=== PATIENT | male | born 1940 | race Caucasian/White ===

== ENCOUNTER → 2017-01-15 | Outpatient (CLI) | payer MEDICARE, OTHER ==
[2017-01-15 12:43] LABS: HEMATOCRIT 34.8 % (37.9-51.0); HEMOGLOBIN 11.5 g/dL (13.5-17.0); HGB HCT DIFFERENCE -0.3; MEAN CORPUSCULAR HEMOGLOBIN 28.2 pg (27.0-33.4); MEAN CORPUSCULAR VOLUME 85 fl (80-97); RED BLOOD COUNT 4.08 10^6/uL (4.35-5.55); RED CELL DISTRIBUTION WIDTH 14.9 % (11.5-14.0); WHITE BLOOD COUNT 5.9 10^3/uL (4.0-10.5)
[2017-01-15 13:05] LABS: ALANINE AMINOTRANSFERASE 37 U/L (21-72); ALBUMIN 3.7 g/dL (3.5-5.0); ALKALINE PHOSPHATASE 75 U/L (38-126); ANION GAP 13 (5-19); ASPARTATE AMINO TRANSFERASE 31 U/L (17-59); BILIRUBIN,TOTAL 0.3 mg/dL (0.2-1.3); BLOOD UREA NITROGEN 83 mg/dL (7-20); CARBON DIOXIDE 19 mmol/L (22-30); CHLORIDE 108 mmol/L (98-107); CREATININE RESULT 4.62 mg/dL (0.52-1.25); GLUCOSE 63 mg/dL (75-110); PHOSPHORUS 5.2 mg/dL (2.5-4.5); SODIUM 139.6 mmol/L (137-145); TOTAL PROTEIN 5.9 g/dL (6.3-8.2)
== END ==
LOC: OD 11:15
PROVIDERS: ATTEND Internal Medicine Nephrology
DX: I12.9 Hypertensive chronic kidney disease with stage 1 through stage 4 chronic kidney disease, or unspecified chronic kidney disease (principal); N18.4 Chronic kidney disease, stage 4 (severe); E11.9 Type 2 diabetes mellitus without complications; R80.9 Proteinuria, unspecified; E87.5 Hyperkalemia
CPT/HCPCS: 36415; 80053; 83970; 84100; 85027

== ENCOUNTER → 2017-03-20 | Outpatient (CLI) | payer MEDICARE, OTHER ==
[2017-03-20 09:33] LABS: HEMATOCRIT 36.3 % (37.9-51.0); HEMOGLOBIN 11.6 g/dL (13.5-17.0); HGB HCT DIFFERENCE -1.5; MEAN CORPUSCULAR HEMOGLOBIN 27.9 pg (27.0-33.4); MEAN CORPUSCULAR VOLUME 87 fl (80-97); RED BLOOD COUNT 4.17 10^6/uL (4.35-5.55); RED CELL DISTRIBUTION WIDTH 14.8 % (11.5-14.0); WHITE BLOOD COUNT 5.1 10^3/uL (4.0-10.5)
[2017-03-20 09:43] LABS: APPEARANCE,URINE CLEAR; BILIRUBIN,URINE NEGATIVE (NEGATIVE); GLUCOSE, URINE NEGATIVE (NEGATIVE); KETONES,URINE NEGATIVE (NEGATIVE); LEUKOCYTE ESTERASE,URINE NEGATIVE (NEGATIVE); NITRITE,URINE NEGATIVE (NEGATIVE); PROTEIN,URINE 100 mg/dL (NEGATIVE); URINE SPECIFIC GRAVITY 1.011; UROBILINOGEN,URINE NEGATIVE mg/dL (<2.0)
[2017-03-20 09:58] LABS: ANION GAP 12 (5-19); BLOOD UREA NITROGEN 68 mg/dL (7-20); CARBON DIOXIDE 21 mmol/L (22-30); CHLORIDE 109 mmol/L (98-107); CREATININE RESULT 4.81 mg/dL (0.52-1.25); GLUCOSE 76 mg/dL (75-110); PHOSPHORUS 6.1 mg/dL (2.5-4.5); POTASSIUM 5.3 mmol/L (3.6-5.0); SODIUM 141.8 mmol/L (137-145)
== END ==
LOC: OD 08:46
PROVIDERS: ATTEND Internal Medicine Nephrology
DX: I12.9 Hypertensive chronic kidney disease with stage 1 through stage 4 chronic kidney disease, or unspecified chronic kidney disease (principal); N18.4 Chronic kidney disease, stage 4 (severe); R80.9 Proteinuria, unspecified; E11.9 Type 2 diabetes mellitus without complications
CPT/HCPCS: 36415; 80048; 81001; 83970; 84100; 85027

== ENCOUNTER → 2017-06-19 | Outpatient (CLI) | payer MEDICARE, OTHER ==
[2017-06-19 11:06] LABS: HEMATOCRIT 36.3 % (37.9-51.0); HEMOGLOBIN 11.8 g/dL (13.5-17.0); HGB HCT DIFFERENCE -0.9; MEAN CORPUSCULAR HEMOGLOBIN 28.2 pg (27.0-33.4); MEAN CORPUSCULAR HGB CONC 32.6 g/dL (32.0-36.0); MEAN CORPUSCULAR VOLUME 87 fl (80-97); RED BLOOD COUNT 4.19 10^6/uL (4.35-5.55); RED CELL DISTRIBUTION WIDTH 15.2 % (11.5-14.0)
[2017-06-19 11:16] LABS: APPEARANCE,URINE CLEAR; BILIRUBIN,URINE NEGATIVE (NEGATIVE); GLUCOSE, URINE NEGATIVE (NEGATIVE); KETONES,URINE NEGATIVE (NEGATIVE); LEUKOCYTE ESTERASE,URINE NEGATIVE (NEGATIVE); NITRITE,URINE NEGATIVE (NEGATIVE); PROTEIN,URINE 100 mg/dL (NEGATIVE); UROBILINOGEN,URINE NEGATIVE mg/dL (<2.0)
[2017-06-19 11:30] LABS: ANION GAP 12 (5-19); BLOOD UREA NITROGEN 82 mg/dL (7-20); CARBON DIOXIDE 19 mmol/L (22-30); CHLORIDE 111 mmol/L (98-107); CREATININE RESULT 4.76 mg/dL (0.52-1.25); GLUCOSE 58 mg/dL (75-110); PHOSPHORUS 5.6 mg/dL (2.5-4.5); POTASSIUM 5.4 mmol/L (3.6-5.0); SODIUM 141.6 mmol/L (137-145)
[2017-06-19 11:43] LABS: URINE CREATININE 65.7 mg/dL (22-328)
== END ==
LOC: OD 09:50
PROVIDERS: ATTEND Internal Medicine Nephrology
DX: E11.22 Type 2 diabetes mellitus with diabetic chronic kidney disease (principal); I12.9 Hypertensive chronic kidney disease with stage 1 through stage 4 chronic kidney disease, or unspecified chronic kidney disease; N18.4 Chronic kidney disease, stage 4 (severe); R80.9 Proteinuria, unspecified; E87.5 Hyperkalemia
CPT/HCPCS: 36415; 80048; 81001; 82570; 83970; 84100; 84156; 85027

== ENCOUNTER → 2017-06-26 | Outpatient (CLI) | payer MEDICARE, OTHER | LOC: OD 14:23 | PROVIDERS: ATTEND Internal Medicine Nephrology | DX: E87.6 Hypokalemia (principal) | CPT/HCPCS: 36415; 84132 ==

== ENCOUNTER → 2017-07-03 | Outpatient (CLI) | payer MEDICARE, OTHER ==
[2017-07-03 12:05] LABS: ANION GAP 13 (5-19); BLOOD UREA NITROGEN 92 mg/dL (7-20); CALCIUM 9.6 mg/dL (8.4-10.2); CARBON DIOXIDE 19 mmol/L (22-30); CHLORIDE 110 mmol/L (98-107); CREATININE RESULT 4.97 mg/dL (0.52-1.25); GLUCOSE 73 mg/dL (75-110); POTASSIUM 4.7 mmol/L (3.6-5.0); SODIUM 141.5 mmol/L (137-145)
== END ==
LOC: OD 10:41
PROVIDERS: ATTEND Internal Medicine Nephrology
DX: E87.5 Hyperkalemia (principal)
CPT/HCPCS: 36415; 80048

== ENCOUNTER → 2017-07-20 | Outpatient (CLI) | payer MEDICARE, OTHER ==
[2017-07-20 12:14] LABS: HEMATOCRIT 32.2 % (37.9-51.0); HEMOGLOBIN 10.8 g/dL (13.5-17.0); HGB HCT DIFFERENCE 0.2; MEAN CORPUSCULAR HEMOGLOBIN 28.9 pg (27.0-33.4); MEAN CORPUSCULAR HGB CONC 33.6 g/dL (32.0-36.0); MEAN CORPUSCULAR VOLUME 86 fl (80-97); RED BLOOD COUNT 3.74 10^6/uL (4.35-5.55); RED CELL DISTRIBUTION WIDTH 14.5 % (11.5-14.0)
[2017-07-20 12:48] LABS: ANION GAP 10 (5-19); BLOOD UREA NITROGEN 93 mg/dL (7-20); CALCIUM 9.4 mg/dL (8.4-10.2); CARBON DIOXIDE 20 mmol/L (22-30); CHLORIDE 112 mmol/L (98-107); CREATININE RESULT 5.16 mg/dL (0.52-1.25); GLUCOSE 75 mg/dL (75-110); POTASSIUM 5.1 mmol/L (3.6-5.0); SODIUM 142.1 mmol/L (137-145)
== END ==
LOC: OD 11:17
PROVIDERS: ATTEND Internal Medicine Nephrology
DX: N18.4 Chronic kidney disease, stage 4 (severe) (principal); I12.9 Hypertensive chronic kidney disease with stage 1 through stage 4 chronic kidney disease, or unspecified chronic kidney disease; E11.9 Type 2 diabetes mellitus without complications; E87.6 Hypokalemia
CPT/HCPCS: 36415; 80048; 85027

== ENCOUNTER → 2017-09-24 | Outpatient (CLI) | payer MEDICARE, OTHER ==
[2017-09-24 11:59] LABS: HEMATOCRIT 33.2 % (37.9-51.0); HEMOGLOBIN 10.8 g/dL (13.5-17.0); HGB HCT DIFFERENCE -0.8; MEAN CORPUSCULAR HEMOGLOBIN 27.7 pg (27.0-33.4); MEAN CORPUSCULAR HGB CONC 32.6 g/dL (32.0-36.0); MEAN CORPUSCULAR VOLUME 85 fl (80-97); RED BLOOD COUNT 3.91 10^6/uL (4.35-5.55); RED CELL DISTRIBUTION WIDTH 15.3 % (11.5-14.0)
[2017-09-24 12:29] LABS: ANION GAP 14 (5-19); BLOOD UREA NITROGEN 71 mg/dL (7-20); CALCIUM 8.9 mg/dL (8.4-10.2); CARBON DIOXIDE 15 mmol/L (22-30); CHLORIDE 113 mmol/L (98-107); CREATININE RESULT 4.97 mg/dL (0.52-1.25); GLUCOSE 80 mg/dL (75-110); PHOSPHORUS 5.1 mg/dL (2.5-4.5); POTASSIUM 5.2 mmol/L (3.6-5.0); SODIUM 142.4 mmol/L (137-145)
== END ==
LOC: OD 09:51
PROVIDERS: ATTEND Internal Medicine Nephrology
DX: E11.9 Type 2 diabetes mellitus without complications (principal); R80.9 Proteinuria, unspecified; N18.4 Chronic kidney disease, stage 4 (severe); I12.9 Hypertensive chronic kidney disease with stage 1 through stage 4 chronic kidney disease, or unspecified chronic kidney disease
CPT/HCPCS: 36415; 80048; 83970; 84100; 85027

== ENCOUNTER → 2017-11-19 | Outpatient (CLI) | payer MEDICARE, OTHER ==
[2017-11-19 13:36] LABS: HEMATOCRIT 33.7 % (37.9-51.0); MEAN CORPUSCULAR HEMOGLOBIN 27.7 pg (27.0-33.4); MEAN CORPUSCULAR HGB CONC 32.6 g/dL (32.0-36.0); MEAN CORPUSCULAR VOLUME 85 fl (80-97); PLATELET COUNT 182 10^3/uL (150-450); RED BLOOD COUNT 3.97 10^6/uL (4.35-5.55); RED CELL DISTRIBUTION WIDTH 15.8 % (11.5-14.0)
[2017-11-19 13:55] LABS: ANION GAP 13 (5-19); BLOOD UREA NITROGEN 90 mg/dL (7-20); CALCIUM 9.4 mg/dL (8.4-10.2); CARBON DIOXIDE 16 mmol/L (22-30); CHLORIDE 112 mmol/L (98-107); GLUCOSE 84 mg/dL (75-110); PHOSPHORUS 5.3 mg/dL (2.5-4.5); POTASSIUM 5.4 mmol/L (3.6-5.0); SODIUM 141.1 mmol/L (137-145)
[2017-11-19 18:11] LABS: ABSOLUTE BASOPHILS # (AUTO) 0.1 10^3/uL (0.0-0.2); ABSOLUTE EOSINOPHILS # (AUTO) 0.1 10^3/uL (0.0-0.6); ABSOLUTE LYMPHOCYTES (AUTO) 1.5 10^3/uL (0.5-4.7); ABSOLUTE NEUT (AUTO) 5.7 10^3/uL (1.7-8.2); EOSINOPHILS % (AUTO) 1.6 % (0-6); HEMATOCRIT 34.1 % (37.9-51.0); LYMPHOCYTES % (AUTO) 17.8 % (13-45); MEAN CORPUSCULAR HEMOGLOBIN 27.9 pg (27.0-33.4); MEAN CORPUSCULAR HGB CONC 32.3 g/dL (32.0-36.0); MEAN CORPUSCULAR VOLUME 86 fl (80-97); PLATELET COUNT 178 10^3/uL (150-450); RED BLOOD COUNT 3.94 10^6/uL (4.35-5.55); RED CELL DISTRIBUTION WIDTH 15.5 % (11.5-14.0); SEGMENTED NEUTROPHILS % (AUTO) 67.6 % (42-78); TOTAL CELLS COUNTED % (AUTO) 100 %; WHITE BLOOD COUNT 8.4 10^3/uL (4.0-10.5)
[2017-11-19 18:27] LABS: ALANINE AMINOTRANSFERASE 44 U/L (21-72); ALBUMIN 3.8 g/dL (3.5-5.0); ALKALINE PHOSPHATASE 107 U/L (38-126); ASPARTATE AMINO TRANSFERASE 31 U/L (17-59); BILIRUBIN,DIRECT 0.3 mg/dL (0.0-0.4); BILIRUBIN,TOTAL 0.3 mg/dL (0.2-1.3); CHOLESTEROL 132.39 mg/dL (0-200); TOTAL PROTEIN 6.2 g/dL (6.3-8.2); TRIGLYCERIDES 129 mg/dL (<150); URIC ACID 5.6 mg/dL (3.5-8.5)
[2017-11-19 18:39] LABS: DIRECT LDL 48 mg/dL (<100)
[2017-11-19 18:48] LABS: ANION GAP 13 (5-19); BLOOD UREA NITROGEN 90 mg/dL (7-20); CALCIUM 9.4 mg/dL (8.4-10.2); CARBON DIOXIDE 16 mmol/L (22-30); CHLORIDE 112 mmol/L (98-107); GLUCOSE 84 mg/dL (75-110); POTASSIUM 5.4 mmol/L (3.6-5.0); SODIUM 141.1 mmol/L (137-145)
== END ==
LOC: OD 12:36
PROVIDERS: ATTEND Internal Medicine Nephrology
DX: I12.9 Hypertensive chronic kidney disease with stage 1 through stage 4 chronic kidney disease, or unspecified chronic kidney disease (principal); N18.4 Chronic kidney disease, stage 4 (severe); R80.9 Proteinuria, unspecified; E11.22 Type 2 diabetes mellitus with diabetic chronic kidney disease; E79.0 Hyperuricemia without signs of inflammatory arthritis and tophaceous disease; E78.2 Mixed hyperlipidemia; D63.8 Anemia in other chronic diseases classified elsewhere
CPT/HCPCS: 36415; 80048; 80053; 80061; 83036; 83970; 84100; 84550; 85025; 85027

== ENCOUNTER → 2018-01-14 | Outpatient (CLI) | payer MEDICARE, OTHER ==
[2018-01-14 10:18] LABS: HEMATOCRIT 32.9 % (37.9-51.0); HEMOGLOBIN 10.8 g/dL (13.5-17.0); MEAN CORPUSCULAR HEMOGLOBIN 27.8 pg (27.0-33.4); MEAN CORPUSCULAR HGB CONC 32.9 g/dL (32.0-36.0); MEAN CORPUSCULAR VOLUME 85 fl (80-97); PLATELET COUNT 183 10^3/uL (150-450); RED BLOOD COUNT 3.89 10^6/uL (4.35-5.55); RED CELL DISTRIBUTION WIDTH 14.9 % (11.5-14.0); WHITE BLOOD COUNT 5.3 10^3/uL (4.0-10.5)
[2018-01-14 10:55] LABS: ANION GAP 15 (5-19); BLOOD UREA NITROGEN 103 mg/dL (7-20); CALCIUM 9.6 mg/dL (8.4-10.2); CARBON DIOXIDE 16 mmol/L (22-30); CHLORIDE 110 mmol/L (98-107); GLUCOSE 85 mg/dL (75-110); PHOSPHORUS 6.8 mg/dL (2.5-4.5); POTASSIUM 5.2 mmol/L (3.6-5.0)
== END ==
LOC: OD 09:46
PROVIDERS: ATTEND Internal Medicine Nephrology
DX: I12.9 Hypertensive chronic kidney disease with stage 1 through stage 4 chronic kidney disease, or unspecified chronic kidney disease (principal); N18.4 Chronic kidney disease, stage 4 (severe); R80.9 Proteinuria, unspecified; E87.5 Hyperkalemia
CPT/HCPCS: 36415; 80048; 83970; 84100; 85027

== ENCOUNTER → 2018-01-21 | Outpatient (CLI) | payer MEDICARE, OTHER ==
[2018-01-21 16:20] LABS: HEMATOCRIT 34.5 % (37.9-51.0); HEMOGLOBIN 11.3 g/dL (13.5-17.0); MEAN CORPUSCULAR HEMOGLOBIN 27.8 pg (27.0-33.4); MEAN CORPUSCULAR HGB CONC 32.7 g/dL (32.0-36.0); MEAN CORPUSCULAR VOLUME 85 fl (80-97); PLATELET COUNT 169 10^3/uL (150-450); RED BLOOD COUNT 4.06 10^6/uL (4.35-5.55)
[2018-01-21 16:38] LABS: ANION GAP 11 (5-19); BLOOD UREA NITROGEN 75 mg/dL (7-20); CALCIUM 9.2 mg/dL (8.4-10.2); CARBON DIOXIDE 22 mmol/L (22-30); CHLORIDE 108 mmol/L (98-107); GLUCOSE 128 mg/dL (75-110); POTASSIUM 5.7 mmol/L (3.6-5.0); SODIUM 141.4 mmol/L (137-145)
[2018-01-23 07:43] LABS: HEPATITIS C VIRUS AB <0.1 s/co ratio (0.0-0.9); HEPATITS B SURFACE ANTIGEN Negative (Negative)
[2018-01-23 07:58] LABS: HEPATITIS B CORE AB TOT Negative (Negative)
== END ==
LOC: OD 14:49
PROVIDERS: ATTEND Internal Medicine Nephrology
DX: E11.22 Type 2 diabetes mellitus with diabetic chronic kidney disease (principal); N18.4 Chronic kidney disease, stage 4 (severe); R80.9 Proteinuria, unspecified; Z11.59 Encounter for screening for other viral diseases
CPT/HCPCS: 36415; 80048; 85027; 86704; 86803; 86804; 87340

== ENCOUNTER → 2018-06-21 | Outpatient (CLI) | payer MEDICARE, OTHER ==
--- NOTE | 2018-06-21 17:23 | RADIOLOGY REPORT (SQ) ---
EXAM DESCRIPTION: U/S RETROPERITON LTD COMPLETED DATE/TIME: 06/21/2018 8:09 am REASON FOR STUDY: I71.4 ABDOMINAL AORTIC ANEURYSM, WITHOUT RUPTURE I71.4 ABDOMINAL AORTIC ANEURYSM, WITHOUT RUPTURE COMPARISON: None. TECHNIQUE: Dynamic and static grayscale images acquired of the kidneys and bladder and recorded on P ACS. Additional selected color Doppler and spectral images recorded. LIMITATIONS: None. 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 The right kidney measure d 11 cm. A small cortical cysts was seen. Urinary bladder was unremarkable. Ureteral jet was not s een. IMPRESSION: Normal study as performed. TECHNICAL DOCUMENTATION: JOB ID: [id number] [employer]- All Rights Reserved Reading location - IP/workstation name: [email or web address]
== END ==
LOC: RAD 07:40
PROVIDERS: ATTEND Physician Assistant
DX: I71.4 Abdominal aortic aneurysm, without rupture (principal)
CPT/HCPCS: 76775

== ENCOUNTER → 2018-07-08 | Outpatient (CLI) | payer MEDICARE, OTHER ==
--- NOTE | 2018-07-08 19:30 | EKG REPORT ---
SEVERITY:- ABNORMAL ECG - SINUS RHYTHM LEFT BUNDLE BRANCH BLOCK : Confirmed by: Mark Guillermo MD 08-Jul-2018 19:29:26
== END ==
LOC: OD 14:46
PROVIDERS: ATTEND Orthopaedic Surgery
DX: I10 Essential (primary) hypertension (principal)
CPT/HCPCS: 93005; 93010

== ENCOUNTER → 2018-08-30 | Outpatient (CLI) | payer MEDICARE, OTHER ==
--- NOTE | 2018-08-30 09:13 | RADIOLOGY REPORT (SQ) ---
EXAM DESCRIPTION: U/S RETROPERITON LTD COMPLETED DATE/TIME: 08/30/2018 8:56 am REASON FOR STUDY: I71.4 ABDOMINAL AORTIC ANEURYSM, WITHOUT RUPTURE I71.4 ABDOMINAL AORTIC ANEURYSM, WITHOUT RUPTURE COMPARISON: None. TECHNIQUE: Static and dynamic grayscale images acquired of the aorta and stored on PACs. Selected co paula Doppler and spectral images recorded. LIMITATIONS: None. FINDINGS: AORTIC CALIBER MAXIMAL PROXIMAL: Obscured by bowel gas. MID: 2.1 cm. DISTAL: 2.6 cm. ILIAC DIAMETER RIGHT: 2.0 cm. LEFT: 2.0 cm. OTHER: No other significant finding. IMPRESSION: NO ABDOMINAL AORTIC ANEURYSM. COMMENT: Aortic aneurysm imaging followup: 2.6-2.9 cm Every 5 years* *Based upon the Society for Vascular Surgery Guidelines: J Vasc Surg. 2009 Oct;50(4 Suppl):S2-49 *For aortas of maximum diameter of 2.6-2.9 cm meeting the criteria for AAA (?1.5 x proximal normal se gment) TECHNICAL DOCUMENTATION: JOB ID: [id number] [employer]- All Rights Reserved Reading location - IP/workstation name: [email or web address]
== END ==
LOC: RAD 08:22
PROVIDERS: ATTEND Physician Assistant
DX: I71.4 Abdominal aortic aneurysm, without rupture (principal)
CPT/HCPCS: 76775

== ENCOUNTER 2018-08-31 15:59 | Emergency (ER) | payer MEDICARE, OTHER ==
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
[2018-08-31] MEDS ORDERED: LIDOCAINE 1% INJ-PF (10 MG/ML) 30 ML SDV INJ ONE (16:51)
[2018-08-31 16:58] LABS: ABSOLUTE EOSINOPHILS # (AUTO) 0.1 10^3/uL (0.0-0.6); ABSOLUTE LYMPHOCYTES (AUTO) 1.1 10^3/uL (0.5-4.7); ABSOLUTE NEUT (AUTO) 5.5 10^3/uL (1.7-8.2); BASOPHILS % (AUTO) 0.4 % (0-2); EOSINOPHILS % (AUTO) 0.7 % (0-6); HEMATOCRIT 37.1 % (37.9-51.0); HEMOGLOBIN 12.7 g/dL (13.5-17.0); LYMPHOCYTES % (AUTO) 13.9 % (13-45); MEAN CORPUSCULAR HEMOGLOBIN 29.5 pg (27.0-33.4); MEAN CORPUSCULAR HGB CONC 34.2 g/dL (32.0-36.0); MEAN CORPUSCULAR VOLUME 86 fl (80-97); MONOCYTES % (AUTO) 13.5 % (3-13); PLATELET COUNT 184 10^3/uL (150-450); RED BLOOD COUNT 4.31 10^6/uL (4.35-5.55); RED CELL DISTRIBUTION WIDTH 14.9 % (11.5-14.0); SEGMENTED NEUTROPHILS % (AUTO) 71.5 % (42-78); TOTAL CELLS COUNTED % (AUTO) 100 %; WHITE BLOOD COUNT 7.7 10^3/uL (4.0-10.5)
--- NOTE | 2018-08-31 17:00 | RADIOLOGY REPORT (SQ) ---
EXAM DESCRIPTION: CHEST SINGLE VIEW COMPLETED DATE/TIME: 08/31/2018 4:46 pm REASON FOR STUDY: left arm pain COMPARISON: 05/19/2016 EXAM PARAMETERS: NUMBER OF VIEWS: One view. TECHNIQUE: Single frontal radiographic view of the chest acquired. RADIATION DOSE: NA LIMITATIONS: None. FINDINGS: LUNGS AND PLEURA: No opacities, masses or pneumothorax. No pleural effusion. MEDIASTINUM AND HILAR STRUCTURES: The mediastinum appears widened. No focal mass is visualized. HEART AND VASCULAR STRUCTURES: Heart normal in size. Normal vasculature. BONES: No acute findings. HARDWARE: None in the chest. OTHER: No other significant finding. IMPRESSION: The appearance of a somewhat widened mediastinum may be due in part to AP technique. Co nsider dedicated PA/Lat chest imaging when feasible. TECHNICAL DOCUMENTATION: JOB ID: [id number] [employer]- All Rights Reserved Reading location - IP/workstation name: [email or web address]
[2018-08-31 17:09] LABS: INTERNATIONAL RATION (INR) 0.96; PROTHROMBIN TIME 13.3 SEC (11.4-15.4)
[2018-08-31 17:16] LABS: ALANINE AMINOTRANSFERASE 31 U/L (21-72); ALBUMIN 3.8 g/dL (3.5-5.0); ALKALINE PHOSPHATASE 145 U/L (38-126); ANION GAP 11 (5-19); ASPARTATE AMINO TRANSFERASE 37 U/L (17-59); BILIRUBIN,DIRECT 0.2 mg/dL (0.0-0.4); BILIRUBIN,TOTAL 0.6 mg/dL (0.2-1.3); BLOOD UREA NITROGEN 40 mg/dL (7-20); CALCIUM 9.2 mg/dL (8.4-10.2); CARBON DIOXIDE 28 mmol/L (22-30); CHLORIDE 96 mmol/L (98-107); CREATINE KINASE 125 U/L (55-170); GLUCOSE 99 mg/dL (75-110); POTASSIUM 4.3 mmol/L (3.6-5.0); SODIUM 135.4 mmol/L (137-145); TOTAL PROTEIN 6.7 g/dL (6.3-8.2)
[2018-08-31 17:32] LABS: TROPONIN I 0.182 ng/mL
[2018-08-31 18:22] LABS: APPEARANCE,URINE CLEAR; BILIRUBIN,URINE NEGATIVE (NEGATIVE); COLOR,URINE STRAW; GLUCOSE, URINE 50 mg/dL (NEGATIVE); KETONES,URINE NEGATIVE (NEGATIVE); LEUKOCYTE ESTERASE,URINE NEGATIVE (NEGATIVE); NITRITE,URINE NEGATIVE (NEGATIVE); PROTEIN,URINE >=500 mg/dL (NEGATIVE); URINE SPECIFIC GRAVITY 1.007; UROBILINOGEN,URINE NEGATIVE mg/dL (<2.0)
[2018-08-31] MEDS ORDERED: SULFAMETHOXAZOLE/TRIMETHOPRIM 800-160 MG TABLET PO ONE (18:33)
[2018-08-31] MEDS ORDERED: CEPHALEXIN 500 MG CAPSULE PO ONE (18:33)
[2018-08-31] MEDS ORDERED: FENTANYL CITRATE INJ/PF 100 MCG/2 ML AMPUL IV ONE (18:36)
--- NOTE | 2018-08-31 19:47 | RADIOLOGY REPORT (SQ) ---
EXAM DESCRIPTION: CHEST 2 VIEWS COMPLETED DATE/TIME: 08/31/2018 7:36 pm REASON FOR STUDY: repeat CXR COMPARISON: 08/31/2018 NUMBER OF VIEWS: One view. TECHNIQUE: Single frontal radiographic view of the chest acquired. LIMITATIONS: None. FINDINGS: LUNGS AND PLEURA: No opacities, masses or pneumothorax. No pleural effusion. MEDIASTINUM AND HILAR STRUCTURES: The mediastinum appears widened. HEART AND VASCULAR STRUCTURES: Heart normal in size. Normal vasculature. BONES: No acute findings. HARDWARE: None in the chest. OTHER: No other significant finding. IMPRESSION: Stable radiographic appearance of the chest demonstrating a widened mediastinum, which m ay be due in part to AP technique. Differential considerations include ascending aortic aneurysm or mediastinal mass. TECHNICAL DOCUMENTATION: JOB ID: [id number]- All Rights Reserved Reading location - IP/workstation name: [email or web address]
--- NOTE | 2018-08-31 21:45 | EKG REPORT ---
SEVERITY:- ABNORMAL ECG - SINUS RHYTHM LEFT BUNDLE BRANCH BLOCK : Confirmed by: Mark Guillermo MD 31-Aug-2018 21:45:26
--- NOTE | 2018-08-31 21:45 | EKG REPORT ---
SEVERITY:- ABNORMAL ECG - SINUS RHYTHM ATRIAL PREMATURE COMPLEX LEFT BUNDLE BRANCH BLOCK : Confirmed by: Mark Guillermo MD 31-Aug-2018 21:45:34
--- NOTE | 2018-08-31 21:46 | EKG REPORT ---
SEVERITY:- ABNORMAL ECG - SINUS RHYTHM ATRIAL PREMATURE COMPLEX FIRST DEGREE AV BLOCK LEFT BUNDLE BRANCH BLOCK : Confirmed by: Mark Guillermo MD 31-Aug-2018 21:45:11
[2018-09-01] MEDS ORDERED: FENTANYL CITRATE INJ/PF 100 MCG/2 ML AMPUL IV ONE (01:17)
[2018-09-01 03:17] VITALS: BP 141/70
== END 2018-09-01 02:30 | disposition short-term general hospital (02) ==
LOC: ER 15:59
PROC: 0H9CXZZ Drainage of Left Upper Arm Skin, External Approach (ICD-10-PCS; principal; 2018-08-31)
DX: R79.89 Other specified abnormal findings of blood chemistry (principal); I12.0 Hypertensive chronic kidney disease with stage 5 chronic kidney disease or end stage renal disease; L02.412 Cutaneous abscess of left axilla; M25.512 Pain in left shoulder; N18.6 End stage renal disease; M10.9 Gout, unspecified; Z99.2 Dependence on renal dialysis; Z88.6 Allergy status to analgesic agent
CPT/HCPCS: 93005; 96376; 99285; 96374; 36415; 87070; 87205; 82553; 82550; 85025; 85610; 87077; 80053; 81001; 84484; 87186; 71046; 71045; 93010; 10060; A6266; L3908; A9270 ×2; J3010 ×2; J3490

== ENCOUNTER 2018-09-05 14:50 | Emergency (ER) | payer MEDICARE, OTHER ==
--- NOTE | 2018-09-05 15:55 | ER Document Report ---
ED Medical Screen (RME) - General Chief Complaint: Irregular Pulse Stated Complaint: IRREGULAR HEART RATE Time Seen by Provider: 09/05/18 15:46 TRAVEL OUTSIDE OF THE [place]. IN LAST 30 DAYS: No - HPI Patient complains to provider of: New-onset A. fib Notes: 09/05/18 15:54 Patient recently seen diagnosed with a end STEMI sent to [facility] had a stress test performed also has a s abscess abscess that was drained and patient follow-up with PCP after his dialysis today for follow-up visit EKG showed new onset A. fib patient otherwise asymptomatic - Related Data Allergies/Adverse Reactions: morphine Allergy (Severe, Verified 05/18/16 11:05) Hallucinations Past Medical History - Past Medical History Cardiac Medical History: Reports: Hx Hypertension Denies: Hx Coronary Artery Disease, Hx Heart Attack Pulmonary Medical History: Denies: Hx Asthma, Hx Bronchitis, Hx COPD, Hx Pneumonia Neurological Medical History: Denies: Hx Cerebrovascular Accident, Hx Seizures Renal/ Medical History: Denies: Hx Peritoneal Dialysis Musculoskeltal Medical History: Reports Hx Arthritis - generalized - Immunizations Hx Diphtheria, Pertussis, Tetanus Vaccination: Yes - 2014 Review of Systems - Review of Systems Respiratory: Other - New onset A. fib Physical Exam - Vital signs Vitals: Temp Pulse Resp BP Pulse Ox 97.8 F 92 16 122/70 96 09/05/18 15:05 09/05/18 15:05 09/05/18 15:05 09/05/18 15:05 09/05/18 15:05 - Respiratory Respiratory status: No respiratory distress Chest status: Nontender Breath sounds: Normal Chest palpation: Normal - Cardiovascular Rhythm: Irregularly irregular, Tachycardia Course - Vital Signs Vital signs: Temp Pulse Resp BP Pulse Ox 97.8 F 92 16 122/70 96 09/05/18 15:05 09/05/18 15:05 09/05/18 15:05 09/05/18 15:05 09/05/18 15:05 Doctor's Discharge - Discharge Referrals: SARAHY DICKEY MD [Primary Care Provider] - Follow up as needed
[2018-09-05 16:38] LABS: ABSOLUTE EOSINOPHILS # (AUTO) 0.1 10^3/uL (0.0-0.6); ABSOLUTE LYMPHOCYTES (AUTO) 1.6 10^3/uL (0.5-4.7); ABSOLUTE MONOCYTES (AUTO) 0.7 10^3/uL (0.1-1.4); ABSOLUTE NEUT (AUTO) 2.4 10^3/uL (1.7-8.2); BASOPHILS % (AUTO) 0.5 % (0-2); EOSINOPHILS % (AUTO) 2.8 % (0-6); HEMATOCRIT 38.8 % (37.9-51.0); HEMOGLOBIN 13.3 g/dL (13.5-17.0); LYMPHOCYTES % (AUTO) 32.4 % (13-45); MEAN CORPUSCULAR HEMOGLOBIN 29.6 pg (27.0-33.4); MEAN CORPUSCULAR HGB CONC 34.3 g/dL (32.0-36.0); MEAN CORPUSCULAR VOLUME 86 fl (80-97); MONOCYTES % (AUTO) 14.4 % (3-13); PLATELET COUNT 251 10^3/uL (150-450); RED BLOOD COUNT 4.51 10^6/uL (4.35-5.55); RED CELL DISTRIBUTION WIDTH 14.7 % (11.5-14.0); SEGMENTED NEUTROPHILS % (AUTO) 49.9 % (42-78); TOTAL CELLS COUNTED % (AUTO) 100 %; WHITE BLOOD COUNT 4.8 10^3/uL (4.0-10.5)
[2018-09-05 16:44] LABS: INTERNATIONAL RATION (INR) 0.94
--- NOTE | 2018-09-05 16:47 | RADIOLOGY REPORT (SQ) ---
EXAM DESCRIPTION: CHEST SINGLE VIEW COMPLETED DATE/TIME: 09/05/2018 4:38 pm REASON FOR STUDY: new onset aifb COMPARISON: AP chest 08/31/2018, 05/19/2016 EXAM PARAMETERS: NUMBER OF VIEWS: One view. TECHNIQUE: Single frontal radiographic view of the chest acquired. RADIATION DOSE: NA LIMITATIONS: None. FINDINGS: LUNGS AND PLEURA: Minimal scarring right lateral costophrenic sulcus. No acute infiltrates. No pleural effusion or pneumothorax. MEDIASTINUM AND HILAR STRUCTURES: No masses. Contour normal. HEART AND VASCULAR STRUCTURES: Heart normal in size. Normal vasculature. BONES: No acute findings. HARDWARE: None in the chest. OTHER: No other significant finding. IMPRESSION: NO ACUTE RADIOGRAPHIC FINDING IN THE CHEST. TECHNICAL DOCUMENTATION: JOB ID: [id number] [employer]- All Rights Reserved Reading location - IP/workstation name: [email or web address]
[2018-09-05 16:59] LABS: ALANINE AMINOTRANSFERASE 29 U/L (21-72); ALBUMIN 3.9 g/dL (3.5-5.0); ALKALINE PHOSPHATASE 151 U/L (38-126); ANION GAP 11 (5-19); ASPARTATE AMINO TRANSFERASE 37 U/L (17-59); BILIRUBIN,DIRECT 0.4 mg/dL (0.0-0.4); BILIRUBIN,TOTAL 0.5 mg/dL (0.2-1.3); BLOOD UREA NITROGEN 32 mg/dL (7-20); CALCIUM 8.6 mg/dL (8.4-10.2); CARBON DIOXIDE 32 mmol/L (22-30); CHLORIDE 97 mmol/L (98-107); CREATINE KINASE 142 U/L (55-170); GLUCOSE 99 mg/dL (75-110); LIPASE 167.5 U/L (23-300); POTASSIUM 4.4 mmol/L (3.6-5.0); SODIUM 140.4 mmol/L (137-145); TOTAL PROTEIN 6.8 g/dL (6.3-8.2)
[2018-09-05 17:12] LABS: CREATINE KINASE MB 2.46 ng/mL (<4.55)
[2018-09-05 17:18] LABS: TROPONIN I 0.062 ng/mL
--- NOTE | 2018-09-05 17:32 | ER Document Report ---
ED Cardiac - General Chief Complaint: Irregular Pulse Stated Complaint: IRREGULAR HEART RATE Time Seen by Provider: 09/05/18 15:46 Notes: Patient is here because he was found to be in atrial fibrillation when seen at his doctor's office today. He does not have a history of this condition and he has no symptoms. Patient was seen here in this emergency department on August 31, 5 days ago, for left hand pain. He had a slightly elevated troponin with a normal EKG showing a sinus rhythm. He was transferred to [facility] where they did various studies and tests on him, but did not do a cardiac cath. He was discharged home on September 03, 2 days ago. He says that he wore a monitor during his entire stay at [facility] and no one mentioned to him that he had an irregular heartbeat. He went to his primary care doctor's office today for a discharge follow-up and was discovered to be in atrial fibrillation. Patient denies any difficulty breathing or shortness of breath. He is not on any blood thinners. Patient is a renal dialysis patient, receives dialysis Sunday, , and Sunday and had dialysis this morning. Patient still makes some urine and urinates several times a day. Current medications include atenolol 25 mg, 1/2 tablet daily, amlodipine 10 mg daily, U [place], Lasix 20 mg once a week, statin, fenofibrate. TRAVEL OUTSIDE OF THE [place]. IN LAST 30 DAYS: No - Related Data Allergies/Adverse Reactions: morphine Allergy (Severe, Verified 05/18/16 11:05) Hallucinations Past Medical History - Social History Smoking Status: Never Smoker Frequency of alcohol use: None Drug Abuse: None Family History: Reviewed & Not Pertinent Patient has suicidal ideation: No Patient has homicidal ideation: No - Past Medical History Cardiac Medical History: Reports: Hx Hypercholesterolemia, Hx Hypertension Neurological Medical History: Denies: Hx Cerebrovascular Accident Endocrine Medical History: Reports: Hx Diabetes Mellitus Type 2 - diet controlled Renal/ Medical History: Reports: Hx End Stage Renal Disease Musculoskeletal Medical History: Reports Hx Arthritis - generalized Past Surgical History: Reports: Hx Kidney (Renal Surgery) - L nephrectomy 2002, Hx Orthopedic Surgery - b/l knees - Immunizations Hx Diphtheria, Pertussis, Tetanus Vaccination: Yes - 2014 Hx Pneumococcal Vaccination: 11/12/14 Review of Systems - Review of Systems Notes: REVIEW OF SYSTEMS: CONSTITUTIONAL : Denies fever. EENT: Denies eye, ear, nose or mouth or throat pain or other symptoms. CARDIOVASCULAR: Denies chest pain. RESPIRATORY: Denies cough, chest congestion, or shortness of breath. GASTROINTESTINAL: Denies abdominal pain or nausea, vomiting, or diarrhea. GENITOURINARY: Denies difficulty or painful urinating, urinary frequency, blood in urine. MUSCULOSKELETAL: Denies back or neck pain. Denies joint pain or swelling. See HPI. SKIN: Denies rash or skin lesions. NEUROLOGICAL: Denies LOC or altered mental status. Denies headache. Denies sensory loss or motor deficits. ALL OTHER SYSTEMS REVIEWED AND NEGATIVE. Physical Exam - Vital signs Vitals: Temp Pulse Resp BP Pulse Ox 97.8 F 92 16 122/70 96 09/05/18 15:05 09/05/18 15:05 09/05/18 15:05 09/05/18 15:05 09/05/18 15:05 Interpretation: Normal - Notes Notes: PHYSICAL EXAMINATION: GENERAL: Well-appearing, in no acute distress. HEAD: Atraumatic, normocephalic. EYES: Pupils equal round and reactive to light, extraocular movements intact. ENT: oropharynx clear without exudates. Moist mucous membranes. NECK: Normal range of motion, supple. LUNGS: Breath sounds clear and equal bilaterally. HEART: Irregularly irregular rate and rhythm without murmurs. ABDOMEN: Soft, nontender. No guarding or rebound. No masses. BACK: No tenderness throughout entire back. EXTREMITIES: Normal range of motion without pain. No edema present. Negative Homans bilaterally. NEUROLOGICAL: Normal speech, normal gait. Normal sensory, motor, and reflex exams. Awake, alert, and oriented x3. Cranial nerves normal. PSYCH: Normal mood, normal affect. SKIN: Warm, dry, no rashes. Course - Re-evaluation Re-evalutation: 09/05/18 17:54 Discussed this case with patient's outside repairer special, Dr. Toledo, and then also discussed this case with Dr. Mariee, direct chill casting operator on-call, who came to the emergency department to evaluate the patient and consult. Plan is to discharge patient for him to start taking Eliquis 2.5 mg twice a day. Follow-up with Dr. Mariee and primary care physician. - Vital Signs Vital signs: Temp Pulse Resp BP Pulse Ox 97.8 F 92 16 122/70 96 09/05/18 15:05 09/05/18 15:05 09/05/18 15:05 09/05/18 15:05 09/05/18 15:05 - Laboratory Result Diagrams: 09/05/18 16:23 09/05/18 16:23 Laboratory results interpreted by me: 09/05/18 09/05/18 16:23 16:23 Hgb 13.3 L RDW 14.7 H Monocytes % 14.4 H Chloride 97 L Carbon Dioxide 32 H BUN 32 H Creatinine 3.07 H Est GFR ( Amer) 24 L Est GFR (Non-Af Amer) 20 L Alkaline Phosphatase 151 H - EKG Interpretation by Me Rate: Normal Rhythm: A.Fib Milroy/QRS: LBBB Additional EKG results interpreted by me: 09/05/18 17:53 Today's EKG shows atrial fibrillation with a rate of 85/min. He has a left bundle branch block as well. Patient's EKG on August 31, 2018, just 5 days ago was a normal sinus rhythm with a first-degree AV block and a left bundle branch block. Discharge - Discharge Clinical Impression: Atrial fibrillation, ESRD (end stage renal disease) Condition: Stable Disposition: HOME, SELF-CARE Additional Instructions: Atrial Fibrillation Atrial fibrillation is an abnormal heart rhythm, caused by irregular electrical circuits in the upper heart chamber. It can be caused by heart valve disease, hardening of the arteries, or metabolic problems such as thyroid disease, or may occur without a clear cause. Atrial fibrillation may occur only occasionally, or may be chronic. Atrial fibrillation often results in a very fast heart rate, with palpitations, lightheadedness, and shortness of breath. Treatment is to slow the abnormally fast rate, and to convert the rhythm back to normal, if possible. Many patients stay in atrial fibrillation for years without symptoms or complications. Your doctor will decide whether you can be converted back to a normal heart rhythm. Contact the doctor or emergency medical system at once if you develop chest pain, shortness of breath, or severe lightheadedness, or if you develop any disturbance of consciousness, problems with speech, or localized weakness. FOLLOW-UP CARE: If you have been referred to a physician for follow-up care, call the physician s office for an appointment as you were instructed or within the next two days. If you experience worsening or a significant change in your symptoms, notify the physician immediately or return to the Emergency Department at any time for re-evaluation. I am providing you with enough Eliquis medication for you to take for 2 weeks. After that, please make arrangements with your primary care physician to get further medication. Continue to take all of your current medications as prescribed. Prescriptions: Apixaban [Eliquis 2.5 mg Tablet] 2.5 mg PO BID #30 tablet Referrals: SARAHY DICKEY MD [Primary Care Provider] - Follow up as needed
[2018-09-05] MEDS ORDERED: APIXABAN 2.5 MG TABLET PO ONE (17:59)
--- NOTE | 2018-09-05 18:31 | PDOC CONSULTATION ---
Consultation Consult Date: 09/05/18 Attending physician:: LAYTON BINGHAM Consult reason:: Atrial fibrillation History of Present Illness Admission Date/PCP: SARAHY DICKEY MD Patient complains of: Fatigue History of Present Illness: KATHARINA SANCHEZ is a 78 year old male is here because he was found to be in atrial fibrillation when seen at his doctor's office today. He does not have a history of this condition and he has no symptoms. Patient was seen here in this emergency department on August 31, 5 days ago, for left hand pain. He had a slightly elevated troponin with a normal EKG showing a sinus rhythm. He was transferred to [facility] where they did various studies and tests on him, but did not do a cardiac cath. He was discharged home on September 03, 2 days ago. He says that he wore a monitor during his entire stay at [facility] and no one mentioned to him that he had an irregular heartbeat. He went to his primary care doctor's office today for a discharge follow-up and was discovered to be in atrial fibrillation. Patient denies any difficulty breathing or shortness of breath. He is not on any blood thinners. Patient is a renal dialysis patient, receives dialysis Sunday, , and Sunday and had dialysis this morning. Patient still makes some urine and urinates several times a day. Current medications include atenolol 25 mg, 1/2 tablet daily, amlodipine 10 mg daily, U [place], Lasix 20 mg once a week, statin, fenofibrate. This history was reviewed with the patient and his . They confirm this. On repeated questioning patient denied any prior history of strokes, mini strokes TIA. He denied any history of excessive bleeding problems but does bruise easily. Patient has history of chronic kidney disease and currently on dialysis therapy. Past Medical History Cardiac Medical History: Reports: Hyperlipidema, Hypertension Denies: Coronary Artery Disease, Myocardial Infarction Pulmonary Medical History: Denies: Asthma, Bronchitis, Chronic Obstructive Pulmonary Disease (COPD), Pneumonia Neurological Medical History: Denies: Seizures Endocrine Medical History: Reports: Diabetes Mellitus Type 2 - diet controlled Renal/ Medical History: Reports: End Stage Renal Disease Musculoskeltal Medical History: Reports: Arthritis - generalized Hematology: Denies: Anemia Past Surgical History Past Surgical History: Reports: Orthopedic Surgery - b/l knees, Other - Dialysis access related surgeries. Social History Information Source: Patient Smoking Status: Never Smoker - Advance Directive Resuscitation Status: Full Code Surrogate healthcare decision maker:: Patient's is the surrogate decision-maker Family History Family History: Hypertension Parental Family History Reviewed: Yes Children Family History Reviewed: Yes Sibling(s) Family History Reviewed.: Yes Medication/Allergy Home Medications: Aspirin [Aspirin 81 mg Chewable Tablet] 1 tab PO DAILY 05/18/16 Atenolol [Tenormin] 0.5 tab PO DAILY 05/18/16 Calcitriol 1 tab PO ASDIR 05/18/16 Febuxostat [Uloric 40 mg Tablet] 1 tab PO QPM 05/18/16 Fenofibric Acid (Choline) [Trilipix] 1 cap PO QHS 05/18/16 Hydralazine HCl 1 tab PO BID 05/18/16 Insulin Glargine,Hum.rec.anlog [Lantus] 20 units SQ QHS 05/18/16 Rosuvastatin Calcium [Crestor 5 mg Tablet] 1 tab PO QHS 05/18/16 Tramadol HCl/Acetaminophen [Tramadol-Acetaminophn 37.5-325] 1 tab PO TID Oxycodone HCl/Acetaminophen [Percocet 5-325 mg Tablet] 1 tab PO ASDIR PRN #15 tablet 05/23/16 Apixaban [Eliquis 2.5 mg Tablet] 2.5 mg PO BID #30 tablet 09/05/18 Allergies/Adverse Reactions: morphine Allergy (Severe, Verified 05/18/16 11:05) Hallucinations Review of Systems Review of Systems: Please see history of present illness and past medical history as wall. Constitutional: No fever or chills reported. Head : No recent chronic headaches, recent head injury. Eyes: No recent eye pain, diplopia, redness, discharge, acute visual changes. Ears: No recent chronic ear pain, acute hearing loss, ear discharge. Oral cavity: No recent ulcerations, bleeding, oral cavity discomfort. Neck: No recent acute neck pain reported. Hematologic: No recent easy bruising or bleeding. Does describe easy bruising. Lymphatic: No recent lymph node enlargement reported. Cardiovascular system review: See history of present illness. Respiratory system review: No hemoptysis or blood clots in the lungs reported. Mild Shortness of breath on exertion Gastrointestinal system review: Negative for any recent acute hematemesis, melena. Genitourinary system review: No recent acute or chronic hematuria, flank pain, UTI etc. reported. Skin system review: Negative for any recent abnormal bruising, no rash, no pruritus reported. Neurologic: No prior history of strokes, mini strokes, seizure disorder. Psychologic: No history of major psychosis or major depression reported. Musculoskeletal: Minor aches and pains reported. No acute joint swelling reported. Endocrine: No recent polyuria, polydipsia, recent heat or cold intolerance. Physical Exam Vital Signs: Temp Pulse Resp BP Pulse Ox 97.8 F 92 16 122/70 96 09/05/18 15:05 09/05/18 15:05 09/05/18 15:05 09/05/18 15:05 09/05/18 15:05 Intake & Output 09/04/18 09/05/18 09/06/18 06:59 06:59 06:59 Weight 94.9 kg Exam: GENERAL: well-nourished and in no acute distress. Alert and oriented x3 HEAD: Atraumatic, normocephalic. EYES: Pupils equal round and reactive to light, extraocular movements intact, sclera anicteric, conjunctiva are normal. ENT: TMs normal, nares patent, oropharynx clear without exudates. Moist mucous membranes. No oral ulcerations or bleeding gums noted NECK: supple without lymphadenopathy. Trachea is central. No cervical or axillary lymphadenopathy noted. Carotids are 2+, JVD WNL LUNGS: Respiration seems nonlabored, no significant accessory muscle action noted. Breath sounds clear to auscultation bilaterally and equal noted. No wheezes rales or rhonchi noted. No significant dullness noted on percussion. CHEST: Palpation of the chest wall shows no significant chest wall tenderness. HEART: [place] [employer], No PSH, 1/6 FRANCISCO aortic area, 1/6 casanova systolic murmur mitral area, no rubs, no gallops. ABDOMEN: Soft, no significant tenderness appreciated, normoactive bowel sounds. No guarding, no rebound. No rigidity noted . No masses appreciated. EXTREMITIES: Pedal pulses are 1-2+, no calf tenderness noted. No clubbing or cyanosis. 1+ pedal edema noted NEUROLOGICAL: Focused neurological exam showed no significant neurologic deficit. Normal speech, no focal weakness appreciated. PSYCH: Normal mood, normal affect. Judgment and insight within normal limits. SKIN: No significant ecchymosis, skin is noted to be warm. MUSCULOSKELETAL EXAM: No significant acute joint swelling noted. Results Laboratory Results: 09/05/18 16:23 09/05/18 16:23 09/05/18 09/05/18 16:23 16:23 WBC 4.8 RBC 4.51 Hgb 13.3 L Hct 38.8 MCV 86 MCH 29.6 MCHC 34.3 RDW 14.7 H Plt Count 251 Seg Neutrophils % 49.9 Lymphocytes % 32.4 Monocytes % 14.4 H Eosinophils % 2.8 Basophils % 0.5 Absolute Neutrophils 2.4 Absolute Lymphocytes 1.6 Absolute Monocytes 0.7 Absolute Eosinophils 0.1 Absolute Basophils 0.0 Sodium 140.4 Potassium 4.4 Chloride 97 L Carbon Dioxide 32 H Anion Gap 11 BUN 32 H Creatinine 3.07 H Est GFR ( Amer) 24 L Est GFR (Non-Af Amer) 20 L Glucose 99 Calcium 8.6 Magnesium 1.9 Total Bilirubin 0.5 AST 37 ALT 29 Alkaline Phosphatase 151 H Total Protein 6.8 Albumin 3.9 Lipase 167.5 09/05/18 09/05/18 16:23 16:23 Creatine Kinase 142 CK-MB (CK-2) 2.46 Troponin I 0.062 EKG Comments: Atrial flutter fibrillation and left bundle branch block Impressions: Chest X-Ray 09/05/18 15:53 IMPRESSION: NO ACUTE RADIOGRAPHIC FINDING IN THE CHEST. Assessment & Plan - Diagnosis (1) Atrial fibrillation Qualifiers: Atrial fibrillation type: unspecified Qualified Code(s): I48.91 - Unspecified atrial fibrillation Is this a current diagnosis for this admission?: Yes (2) Hypertension Qualifiers: Hypertension type: essential hypertension Qualified Code(s): I10 - Essential (primary) hypertension Is this a current diagnosis for this admission?: Yes (3) ESRD (end stage renal disease) Is this a current diagnosis for this admission?: Yes (4) Coronary artery disease Qualifiers: Coronary Disease-Associated Artery/Lesion type: redding artery [place] vs. transplanted heart: redding heart Associated angina: angina presence unspecified Qualified Code(s): I25.10 - Atherosclerotic heart disease of redding coronary artery without angina pectoris Is this a current diagnosis for this admission?: Yes - Notes Notes: Atrial fibrillation unspecified: Patient noted to be in A. fib. 5 days ago he was in sinus rhythm. Discussed that atrial fibrillation will make him feel fatigued and tired but patient claims that he does not feel too bad. Other risk for atrial fibrillation is increased risk of stroke. Patient does have elevated chads score. Have therefore recommended Eliquis at 2.5 mg p.o. twice daily. Patient does have advanced chronic kidney disease. This was cleared after talking with Dr. 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 Patient did not want to go on Coumadin as he was on warfarin in the past. Hypertension: Continue current antihypertensive. Currently blood pressure is well controlled. End-stage renal disease: Patient on chronic hemodialysis. He tolerates hemodialysis well. Coronary artery disease: Patient was recently seen with elevated troponin I in the non-STEMI range. Subsequently transferred to [facility]. Patient claims that test results are satisfactory but he does not know them for sure. At this point patient stable enough for discharge. I did give patient [phone] my card. Have recommended that he follows with me for a cardiac event monitor and further management of atrial fibrillation as an outpatient. With this he is agreeable. - Time Time Spent: 30 to 50 Minutes - More than 50% of the time spent coordinating care , discussing management plans with involved caregivers. Management plans discussed with involved personnels. Medical decision making was of moderate to high complexity, patient's has multiple comorbidities. Medications reviewed and adjusted accordingly: Yes
[2018-09-05 18:47] VITALS: BP 136/86
--- NOTE | 2018-09-05 22:00 | EKG REPORT ---
SEVERITY:- ABNORMAL ECG - ATRIAL FIBRILLATION, V-RATE 59-120 LEFT BUNDLE BRANCH BLOCK : Confirmed by: Meghann Mariee 05-Sep-2018 21:59:00
== END 2018-09-05 18:47 | disposition home or self-care (01) ==
LOC: ER 14:50
DX: I48.91 Unspecified atrial fibrillation (principal); I12.0 Hypertensive chronic kidney disease with stage 5 chronic kidney disease or end stage renal disease; E11.22 Type 2 diabetes mellitus with diabetic chronic kidney disease; N18.6 End stage renal disease; E78.00 Pure hypercholesterolemia, unspecified; Z88.5 Allergy status to narcotic agent
CPT/HCPCS: 93005; 99285; 36415; 82553; 82550; 83690; 83735; 85025; 85610; 80053; 84484; 71045; 93010; A9270

== ENCOUNTER 2019-01-04 18:33 | Emergency (ER) | payer MEDICARE, OTHER ==
[2019-01-04 20:06] LABS: ABSOLUTE EOSINOPHILS # (AUTO) 0.1 10^3/uL (0.0-0.6); ABSOLUTE LYMPHOCYTES (AUTO) 1.6 10^3/uL (0.5-4.7); ABSOLUTE MONOCYTES (AUTO) 0.9 10^3/uL (0.1-1.4); ABSOLUTE NEUT (AUTO) 4.7 10^3/uL (1.7-8.2); BASOPHILS % (AUTO) 0.4 % (0-2); EOSINOPHILS % (AUTO) 1.5 % (0-6); HEMATOCRIT 37.2 % (37.9-51.0); HEMOGLOBIN 12.4 g/dL (13.5-17.0); LYMPHOCYTES % (AUTO) 22.2 % (13-45); MEAN CORPUSCULAR HGB CONC 33.4 g/dL (32.0-36.0); MEAN CORPUSCULAR VOLUME 87 fl (80-97); MONOCYTES % (AUTO) 11.9 % (3-13); PLATELET COUNT 169 10^3/uL (150-450); RED BLOOD COUNT 4.29 10^6/uL (4.35-5.55); RED CELL DISTRIBUTION WIDTH 14.9 % (11.5-14.0); TOTAL CELLS COUNTED % (AUTO) 100 %; WHITE BLOOD COUNT 7.3 10^3/uL (4.0-10.5)
[2019-01-04 20:22] LABS: ALANINE AMINOTRANSFERASE 33 U/L (21-72); ALBUMIN 3.4 g/dL (3.5-5.0); ALKALINE PHOSPHATASE 123 U/L (38-126); ANION GAP 11 (5-19); ASPARTATE AMINO TRANSFERASE 51 U/L (17-59); BILIRUBIN,DIRECT 0.4 mg/dL (0.0-0.4); BILIRUBIN,TOTAL 0.8 mg/dL (0.2-1.3); BLOOD UREA NITROGEN 22 mg/dL (7-20); CALCIUM 7.9 mg/dL (8.4-10.2); CARBON DIOXIDE 28 mmol/L (22-30); CHLORIDE 97 mmol/L (98-107); GLUCOSE 107 mg/dL (75-110); POTASSIUM 4.2 mmol/L (3.6-5.0); SODIUM 135.5 mmol/L (137-145)
[2019-01-04 20:47] LABS: A TYPE INFLUENZA AG NEGATIVE (NEGATIVE); B INFLUENZA AG NEGATIVE (NEGATIVE)
--- NOTE | 2019-01-04 21:03 | RADIOLOGY REPORT (SQ) ---
EXAM DESCRIPTION: XR CHEST 1 VIEW COMPLETED DATE/TME: 01/04/2019 19:46 CLINICAL HISTORY: 78 years, Male, cough COMPARISON: 08/31/2018 chest NUMBER OF VIEWS: 1 TECHNIQUE: Portable chest LIMITATIONS: None. FINDINGS: Cardiomegaly. Osteopenia. Subsegmental atelectasis in the lung bases. No pneumothorax IMPRESSION: Cardiomegaly. No acute cardiopulmonary process copyright 2010 [employer]- All Rights Reserved
--- NOTE | 2019-01-04 21:38 | ER Document Report ---
ED General - General Chief Complaint: Flu Symptoms Stated Complaint: UNABLE TO EAT, WEIGHT LOSS, HEARTRATE ISSUE Time Seen by Provider: 01/04/19 19:43 Primary Care Provider: SARAHY DICKEY MD [Primary Care Provider] - Follow up as needed Notes: Patient is an 78-year-old female with end-stage renal disease, dialysis depend ent, hypertension, presents complaining of approximately 1 week of nasal congestion, loss of smell, loss of taste and postnasal drip. Patient states that food does not appeal to him, that he is eating very little and has begun to feel somewhat weak secondary to this. is here, similar symptoms for the past week. Patient has not seen his primary doctor regarding today's concerns. Nothing seems to improve or worsen his symptoms. Has not had fever, vomiting, diarrhea, shortness of breath or chest pain. Denies history of similar symptoms in the recent past. TRAVEL OUTSIDE OF THE [place] IN LAST 30 DAYS: No - Related Data Allergies/Adverse Reactions: morphine Allergy (Severe, Verified 01/04/19 19:36) Hallucinations Past Medical History - General Information source: Patient - Social History Smoking Status: Never Smoker Frequency of alcohol use: Rare Drug Abuse: None Lives with: Spouse/Significant other Family History: Reviewed & Not Pertinent, Hypertension Patient has suicidal ideation: No Patient has homicidal ideation: No - Past Medical History Cardiac Medical History: Reports: Hx Atrial Fibrillation, Hx Hyperchole sterolemia, Hx Hypertension Denies: Hx Coronary Artery Disease, Hx Heart Attack Pulmonary Medical History: Denies: Hx Asthma, Hx Bronchitis, Hx COPD, Hx Pneumonia Neurological Medical History: Denies: Hx Cerebrovascular Accident, Hx Seizures Endocrine Medical History: Reports: Hx Diabetes Mellitus Type 2 - diet controlle d Renal/ Medical History: Reports: Hx End Stage Renal Disease. Denies: Hx Peritoneal Dialysis Musculoskeletal Medical History: Reports Hx Arthritis - generalized Past Surgical History: Reports: Hx Kidney (Renal Surgery) - remoal left kidey, Hx Orthopedic Surgery - b/l knees,,achiles tendon, carpel tunnel, Other - Dialys is access related surgeries. - Immunizations Hx Diphtheria, Pertussis, Tetanus Vaccination: Yes - 2014 Hx Pneumococcal Vaccination: 11/12/14 Review of Systems - Review of Systems Notes: Constitutional: Negative for fever. Positive for loss of appetite HENT: Negative for sore throat. Positive for nasal congestion Eyes: Negative for visual changes. Cardiovascular: Negative for chest pain. Positive for nonproductive cough Respiratory: Negative for shortness of breath. Gastrointestinal: Negative for abdominal pain, vomiting or diarrhea. Genitourinary: Negative for dysuria. Musculoskeletal: Negative for back pain. Skin: Negative for rash. Neurological: Negative for headaches, weakness or numbness. 10 point ROS negative except as marked above and in HPI. Physical Exam - Vital signs Vitals: Temp Pulse Resp BP Pulse Ox 98.0 F 65 18 141/62 H 98 01/04/19 18:45 01/04/19 18:45 01/04/19 18:45 01/04/19 18:45 01/04/19 18:45 Interpretation: Normal Notes: PHYSICAL EXAMINATION: GENERAL: Elderly male in no acute distress HEAD: Atraumatic, normocephalic. EYES: Pupils equal round and reactive to light, extraocular movements intact, sclera anicteric, conjunctiva are normal. ENT: Moderate nasal congestion, oropharynx clear without exudates. Moist mucous membranes. NECK: Normal range of motion, supple without lymphadenopathy LUNGS: Breath sounds clear to auscultation bilaterally and equal. No wheezes rales or rhonchi. HEART: Regular rate and rhythm without murmurs ABDOMEN: Soft, nontender, normoactive bowel sounds. No guarding, no rebound. No masses appreciated. EXTREMITIES: Normal range of motion, no pitting or edema. No cyanosis. NEUROLOGICAL: No focal neurological deficits. Moves all extremities spontaneously and on command. PSYCH: Normal mood, normal affect. SKIN: Warm, Dry, normal turgor, no rashes or lesions noted. Course - Re-evaluation Re-evalutation: 01/04/19 21:36 Presentation is most consistent with a viral upper respiratory infection. Patient is overall well appearance, vitals within normal limits, well-hydrated. Patient denies any headache, neck pain, and has no evidence of meningismus on examination. Lungs are clear bilaterally. No evidence of respiratory distress. Based on clinical exam and history, I do not suspect an acute pneumonia, meningitis, strep pharyngitis, or an acute encephalitis. Patient is complaining of nasal congestion, lack of appetite, states food does not taste good due to lack of smell. States he felt somewhat lightheaded earlier, attributed this to having not eaten much of anything over the last several days. His is here, has the exact same symptoms. Chest x-ray, flu test, labs all broadly unremarkable with the exception of patient's baseline chronic kidney dys function. At this time will discharge with return precautions and follow-up recommendations. Verbal discharge instructions given a the bedside and opportunity for questions given. Medication warnings reviewed. Patient is in agreement with this plan and has verbalized understanding of return precautions and the need for primary care follow-up in the next 24-72 hours. - Vital Signs Vital signs: Temp Pulse Resp BP Pulse Ox 98.8 F 67 16 155/76 H 100 01/04/19 21:40 01/04/19 19:40 01/04/19 21:20 01/04/19 21:20 01/04/19 21:20 - Laboratory Result Diagrams: 01/04/19 19:53 01/04/19 19:53 Laboratory results interpreted by me: 01/04/19 01/04/19 19:53 19:53 RBC 4.29 L Hgb 12.4 L Hct 37.2 L RDW 14.9 H Sodium 135.5 L Chloride 97 L BUN 22 H Creatinine 3.12 H Est GFR ( Amer) 23 L Est GFR (Non-Af Amer) 19 L Calcium 7.9 L Total Protein 6.0 L Albumin 3.4 L - Diagnostic Test Radiology reviewed: Image reviewed, Reports reviewed Radiology results interpreted by me: 01/04/19 21:37 Chest x-ray: No acute infiltrate or pneumothorax Discharge - Discharge Clinical Impression: ESRD (end stage renal disease), Viral respiratory infection, Anorexia, Lightheadedness, Nasal congestion Condition: Good Disposition: HOME, SELF-CARE Additional Instructions: Your labs are unchanged from your baseline. Your chest x-ray does not show pneumonia. Your symptoms are most likely due to a viral infection it should resolve over the next 7-14 days. Please be sure to drink plenty of fluids and get rest. Return to the emergency department he began having difficulty breathing, chest pain, persistent vomiting, or any other symptoms that are concerning to you. Referrals: SARAHY DICKEY MD [Primary Care Provider] - Follow up as needed
--- NOTE | 2019-01-04 22:00 | EKG REPORT ---
SEVERITY:- ABNORMAL ECG - A FLUTTER CLBBB : Confirmed by: Mark Guillermo MD 04-Jan-2019 21:59:19
[2019-01-04 22:08] VITALS: BP 155/76
== END 2019-01-04 21:40 | disposition home or self-care (01) ==
LOC: ER 18:33
DX: J98.8 Other specified respiratory disorders (principal); B97.89 Other viral agents as the cause of diseases classified elsewhere; E11.22 Type 2 diabetes mellitus with diabetic chronic kidney disease; I12.0 Hypertensive chronic kidney disease with stage 5 chronic kidney disease or end stage renal disease; N18.6 End stage renal disease; Z99.2 Dependence on renal dialysis; R63.0 Anorexia; R42 Dizziness and giddiness; R09.81 Nasal congestion; Z88.5 Allergy status to narcotic agent; Z90.5 Acquired absence of kidney
CPT/HCPCS: 36415; 71045; 80053; 85025; 87804; 93005; 93010; 99284

== ENCOUNTER 2019-02-24 10:28 | Day surgery (SDC) | payer MEDICARE, OTHER ==
[2019-02-24] MEDS ORDERED: LIDOCAINE 0.5% INJ-PF (5 MG/ML) 50 ML SDV ONE (11:43)
[2019-02-24 12:03] LABS: ABSOLUTE EOSINOPHILS # (AUTO) 0.1 10^3/uL (0.0-0.6); ABSOLUTE LYMPHOCYTES (AUTO) 1.2 10^3/uL (0.5-4.7); ABSOLUTE MONOCYTES (AUTO) 0.5 10^3/uL (0.1-1.4); ABSOLUTE NEUT (AUTO) 2.7 10^3/uL (1.7-8.2); BASOPHILS % (AUTO) 0.8 % (0-2); EOSINOPHILS % (AUTO) 3.2 % (0-6); HEMATOCRIT 37.4 % (37.9-51.0); HEMOGLOBIN 12.3 g/dL (13.5-17.0); LYMPHOCYTES % (AUTO) 25.8 % (13-45); MEAN CORPUSCULAR HEMOGLOBIN 29.3 pg (27.0-33.4); MEAN CORPUSCULAR HGB CONC 32.9 g/dL (32.0-36.0); MEAN CORPUSCULAR VOLUME 89 fl (80-97); MONOCYTES % (AUTO) 11.9 % (3-13); PLATELET COUNT 184 10^3/uL (150-450); RED CELL DISTRIBUTION WIDTH 18.3 % (11.5-14.0); SEGMENTED NEUTROPHILS % (AUTO) 58.3 % (42-78); TOTAL CELLS COUNTED % (AUTO) 100 %; WHITE BLOOD COUNT 4.6 10^3/uL (4.0-10.5)
[2019-02-24] MEDS ORDERED: HEPARIN SOD (PORCINE) 5,000 UNIT/ML 1 ML SYRINGE ONE (12:05)
[2019-02-24] MEDS ORDERED: FENTANYL CITRATE INJ/PF 100 MCG/2 ML AMPUL ONE (12:05)
[2019-02-24] MEDS ORDERED: MIDAZOLAM 2 MG/2 ML INJ ONE (12:05)
[2019-02-24] MEDS ORDERED: OXYCODONE-ACETAMINOPHEN 5-325 MG TABLET ONE (12:12)
[2019-02-24] MEDS ORDERED: DIAZEPAM 5 MG TABLET ONE (12:12)
[2019-02-24 12:43] LABS: ANION GAP 9 (5-19); BLOOD UREA NITROGEN 53 mg/dL (7-20); CALCIUM 9.4 mg/dL (8.4-10.2); CARBON DIOXIDE 26 mmol/L (22-30); CHLORIDE 101 mmol/L (98-107); GLUCOSE 81 mg/dL (75-110); POTASSIUM 4.7 mmol/L (3.6-5.0); SODIUM 135.9 mmol/L (137-145)
--- NOTE | 2019-02-24 14:55 | Discharge Summary ---
Discharge Summary (SDC) - Discharge Final Diagnosis: #1 malfunctioning AV fistula, right radiocephalic. 2. End-stage renal disease on hemodialysis. 3. Coronary artery disease. 5. Atrial fibrillation. 6. Hypertension. Forms: Sedation D/C Instructions, Discharge POC-Surgical Service Treatment or Instructions: KEEP SITES CLEAN AND DRY SITE NEAREST TO WRIST MAY BE USED FOR DIALYSIS SITE CLOSEST TO ANTECUBITAL SPACE WILL BE ASSESSED AT NEXT VISIT ON LOOK FOR SIGNS OF INFECTION SUCH REDNESS, SWELLING, WARMTH, FOUL SMELLING DRAINAGE, FEVER OVER 101 Discharge home [after recovery per ASU criteria]. Diet , [renal],as tolerated, when fully awake advance as tolerated. Activities within moderation encouraged. Follow up in my office by appointment on of this week for suture removal. Call for appointment. Leave wounds [covered], [keep clean and dry, until office visit. Hold of on school/work [until evaluation in office]. Meds per med rec. May shower [in 48 hrs], [try to keep operated area as dry as possible]. Referrals: TREASURE GONZALEZ PA-C [ALLIED HEALTH PROFESSIONAL] - 02/27/19 11:00 am SARAHY DICKEY MD [Primary Care Provider] - Discharge Diet: Other (Comments) - Renal. Respiratory Treatments at Home: Deep Breathing/Coughing Discharge Activity: Activity As Tolerated Home Care Assistance: None Needed Report the Following to Your Physician Immediately: Shortness of Breath, Fever over 101 Degrees, Redness, Swelling, Warmth, Drainage-Foul Smelling, Weight Gain 2-3lbs a day, Weight Gain 3-5lbs a week
--- NOTE | 2019-02-24 14:58 | PDOC H&P ---
General Chief Complaint: The patient was referred across from dialysis for evaluation for reduced access flow. Down some 25%. - Diagnosis (1) Dialysis AV fistula malfunction Is this a Current Diagnosis?: Yes (2) Atrial fibrillation Is this a Current Diagnosis?: Yes (3) Coronary artery disease Is this a Current Diagnosis?: Yes (4) ESRD (end stage renal disease) Is this a Current Diagnosis?: Yes (5) Hypertension Is this a Current Diagnosis?: Yes - Current Medications/Allergies Home Medications: Aspirin [Aspirin 81 mg Chewable Tablet] 1 tab PO DAILY 05/18/16 Atenolol [Tenormin] 0.5 tab PO DAILY 05/18/16 Febuxostat [Uloric 40 mg Tablet] 1 tab PO QPM 05/18/16 Amlodipine Besylate [Norvasc 10 mg Tablet] 10 mg PO QPM 01/04/19 Atorvastatin Calcium [Lipitor 10 mg Tablet] 10 mg PO DAILY 01/04/19 Calcium Acetate 3 tab PO DAILY 01/04/19 Fenofibrate 50 mg PO DAILY 01/04/19 Furosemide [Lasix 20 mg Tablet] 80 mg PO BID 01/04/19 Tramadol HCl [Ultram 50 mg Tablet] 50 mg PO TID 01/04/19 Allergies/Adverse Reactions: morphine Allergy (Severe, Verified 01/04/19 19:36) Hallucinations Past Medical History Cardiac Medical History: Reports: Atrial Fibrillation, Hyperlipidema, Hypertension Denies: Coronary Artery Disease, Myocardial Infarction Pulmonary Medical History: Denies: Asthma, Bronchitis, Chronic Obstructive Pulmonary Disease (COPD), Pneumonia Neurological Medical History: Denies: Seizures Endocrine Medical History: Reports: Diabetes Mellitus Type 2 - diet controlled Renal/ Medical History: Reports: End Stage Renal Disease Musculoskeltal Medical History: Reports: Arthritis - generalized Hematology: Denies: Anemia Past Surgical History Past Surgical History: Reports: Orthopedic Surgery - b/l knees,,achiles tendon, carpel tunnel, Other - Dialysis access related surgeries. Family History Family History: Reviewed & Not Pertinent, Hypertension Parental Family History Reviewed: No Children Family History Reviewed: No Sibling(s) Family History Reviewed.: No Social History Smoking Status: Current Every Day Smoker Physical Exam Vital Signs: Temp Pulse Resp BP Pulse Ox 97.4 F 89 18 147/90 H 97 02/24/19 12:32 02/24/19 14:50 02/24/19 14:50 02/24/19 14:50 02/24/19 14:50 Intake & Output 02/23/19 02/24/19 02/25/19 06:59 06:59 06:59 Weight 91.2 kg Additional comments: Constitutional: Well-developed well-nourished gentleman. No apparent acute distress. Eyes: Mucous membranes pink and moist, pupils equal and reactive to light. C wears spectacles. ENT: Hearing grossly normal. External pinna normal to inspection. Teeth intact. Tongue normal to inspection. Cardiac: Heart sounds normal,. Respiratory: Normal respiratory effort. Psychiatric: Judgment, memory, insight seem normal. Mood is pleasant and appropriate. Extremities: Upper extremities show normal range of movement. Pulses present noted to the radial arteries. Capillary refill normal. No cyanosis noted. No muscle wasting noted. Right AV fistula is slightly softer than expected. Impression/Plan Plan: The patient will be admitted for AV fistula angiogram and possible intervention. The procedure, its risks, benefits, expected outcome and alternatives are familiar to the patient he wishes to proceed.
--- NOTE | 2019-02-24 15:05 | Operative Report ---
Operative Report DATE OF SURGERY: 02/24/19 PREOPERATIVE DIAGNOSIS: #1 malfunctioning AV fistula, right radiocephalic. 2. End-stage renal disease on hemodialysis. 3. Coronary artery disease. 5. Atrial fibrillation. 6. Hypertension. POSTOPERATIVE DIAGNOSIS: #1 malfunctioning AV fistula, right radiocephalic. 2. End-stage renal disease on hemodialysis. 3. Coronary artery disease. 5. Atrial fibrillation. 6. Hypertension. OPERATION: 1. Needle access in the fistula. 2. Second needle access in the AV fistula. 3. Angioplasty. 4. Angiogram and interpretation. SURGEON: ZAIRA MOFFETT ROOF PANEL HANGER: None. ANESTHESIA: Moderate Sedation TISSUE REMOVED OR ALTERED: Not applicable. COMPLICATIONS: None. ESTIMATED BLOOD LOSS: 5 mL. INTRAOPERATIVE FINDINGS: Of a well founded right forearm radiocephalic fistula. Ectatic in the frequently accessed portion. Somewhat softer than expected. Antegrade angiogram through the first access, shows normal flow through the cephalic vein and also through the brachial vein. The circuit appears normal up to the right atrium. There may be slight subclinical stenosis of the cephalic to subclavian junction, no more than 10% of the adjacent lumen. This was not addressed. Retrograde evaluation shows stenosis about 50% at the radial artery cephalic junction and several stenoses maximally about 70% of the adjacent lumen in the first 7 cm of the fistula. Angioplasty with a 5 mm angioplasty balloon was sufficient to resolve this on angiogram and also clinically with improved fistula to palpation. The radial artery is remarkable for being extremely large easily 5.5 mm in diameter. PROCEDURE: PROCEDURE: After verifying the procedure and having obtained informed consent, the patient's right arm and forearm were prepared with Chlorhexidine and draped out with sterile linen. Local anesthesia infiltrated and antegrade access gained about 6 cm from the anastomosis. The inner cannula of the micropuncture catheter was utilized and this was used for angiogram proximally. Having eliminated any significant cephalad stenosis a retrograde puncture was done. Local anesthesia infiltrated. Percutaneous access into the fistula ,[retrograde], obtained about [20 cm] from the arteriovenous anastomosis using a micro puncture needle followed by micro puncture wire and then a micro puncture catheter. A 0.035 [place] wire was inserted, and over this, a 6 Khmer short introducer was placed.Angiogram demonstrated the aforementioned findings. Angioplasty was elected., this was followed by a [5 -mm] angioplasty balloon . Angioplasty was serially done from radiocephalic anastomosis through to the involved area about 7 cm away.. Inflating using a 3 mils syringe for up to 2 minutes at the time.]. Completion angiogram demonstrated [satisfactory result]. The instrumentation was now withdrawn over a short piece of catheter and a 5-0 Prolene suture. Dressings applied, procedure concluded. Exposure time: 0.7 minutes. Radiation: 7.13 [place]. Contrast: 25 mL of Isovue-300, low osmolality. DICTATING PHYSICIAN: ZAIRA LADD M.D. cc: ZAIRA LADD M.D. ([id number]) >>
--- NOTE | 2019-02-24 15:34 | RADIOLOGY REPORT (SQ) ---
EXAM DESCRIPTION: FISTULAGRAM W/PLASTY COMPLETED DATE/TIME: 02/24/2019 2:30 pm REASON FOR STUDY: T82.858A T82.858A STENOSIS OF OTHER VASCULAR PROSTH DEV/GRFT, INIT Z79.01 LONG T ERM (CURRENT) USE OF ANTICOAGULANTS COMPARISON: None. FLUOROSCOPY TIME: 0.7 minutes. 79 images saved to PACS. TECHNIQUE: Intra-operative images acquired during surgical procedure to evaluate progress. NUMBER OF IMAGES: 79 images. LIMITATIONS: None. FINDINGS: Imaging in fluoroscopy during right upper extremity dialysis access evaluation and plasty by Dr. Coronado . Please refer to the operative report for further details. IMPRESSION: INTRA PROCEDURAL IMAGING ABOVE . COMMENT: Quality ID [id number]: Final reports for procedures using fluoroscopy that document radiation exp osure indices, or exposure time and number of fluorographic images (if radiation exposure indices are not available) Please consult full operative report of the attending physician for description of the procedure. TECHNICAL DOCUMENTATION: JOB ID: [id number] [employer]- All Rights Reserved Reading location - IP/workstation name: [email or web address]
[2019-02-24 15:35] VITALS: BP 130/72
== END 2019-02-24 15:35 | disposition home or self-care (01) ==
LOC: CCL 10:28
PROVIDERS: ATTEND Surgery
DX: T82.858A Stenosis of other vascular prosthetic devices, implants and grafts, initial encounter (principal); Y83.2 Surgical operation with anastomosis, bypass or graft as the cause of abnormal reaction of the patient, or of later complication, without mention of misadventure at the time of the procedure; E11.22 Type 2 diabetes mellitus with diabetic chronic kidney disease; I12.0 Hypertensive chronic kidney disease with stage 5 chronic kidney disease or end stage renal disease; N18.6 End stage renal disease; Z99.2 Dependence on renal dialysis; I48.91 Unspecified atrial fibrillation; I25.10 Atherosclerotic heart disease of native coronary artery without angina pectoris; E87.5 Hyperkalemia; F17.210 Nicotine dependence, cigarettes, uncomplicated; Z90.5 Acquired absence of kidney; Z85.528 Personal history of other malignant neoplasm of kidney; Z01.818 Encounter for other preprocedural examination; Z79.82 Long term (current) use of aspirin; Z79.899 Other long term (current) drug therapy; Z88.5 Allergy status to narcotic agent
CPT/HCPCS: 36415; 82962; 85025; 80048; 36902; C1725; C1887; Q9967; C1769; J2250; J1644 ×2; A9270 ×2; J3010; J3490

== ENCOUNTER 2019-06-30 07:46 | Day surgery (SDC) | payer MEDICARE, OTHER ==
[~2019-06-30 07:46] MED LIST: CEFAZOLIN 1 GM/D5W RTU 1 GM/50 ML RTUPB IV PRN
[2019-06-30 08:44] LABS: HEMATOCRIT 40.8 % (37.9-51.0); HEMOGLOBIN 13.5 g/dL (13.5-17.0); MEAN CORPUSCULAR HEMOGLOBIN 29.8 pg (27.0-33.4); MEAN CORPUSCULAR VOLUME 90 fl (80-97); PLATELET COUNT 145 10^3/uL (150-450); RED BLOOD COUNT 4.53 10^6/uL (4.35-5.55); RED CELL DISTRIBUTION WIDTH 17.3 % (11.5-14.0); WHITE BLOOD COUNT 4.3 10^3/uL (4.0-10.5)
[2019-06-30 08:46] LABS: INTERNATIONAL RATION (INR) 1.12; PROTHROMBIN TIME 14.5 SEC (11.4-15.4)
[2019-06-30 08:47] LABS: PARTIAL THROMBOPLASTIN TIME 37.8 SEC (23.5-35.8)
--- NOTE | 2019-06-30 08:53 | RADIOLOGY REPORT (SQ) ---
EXAM DESCRIPTION: CHEST SINGLE VIEW COMPLETED DATE/TIME: 06/30/2019 8:11 am REASON FOR STUDY: PRE-OP COMPARISON: 01/04/2019 EXAM PARAMETERS: NUMBER OF VIEWS: One view. TECHNIQUE: Single frontal radiographic view of the chest acquired. RADIATION DOSE: NA LIMITATIONS: None. FINDINGS: LUNGS AND PLEURA: Small right pleural effusion. MEDIASTINUM AND HILAR STRUCTURES: No masses. Contour normal. HEART AND VASCULAR STRUCTURES: Cardiomegaly. No evidence of failure. BONES: No acute findings. HARDWARE: None in the chest. OTHER: No other significant finding. IMPRESSION: Small right pleural effusion. TECHNICAL DOCUMENTATION: JOB ID: [id number] [employer]- All Rights Reserved Reading location - IP/workstation name: [email or web address]
[2019-06-30] MEDS ORDERED: FENTANYL CITRATE INJ/PF 100 MCG/2 ML AMPUL ONE (08:58)
[2019-06-30] MEDS ORDERED: HEPARIN SOD (PORCINE) 5,000 UNIT/ML 1 ML VIAL ONE (08:58)
[2019-06-30] MEDS ORDERED: MIDAZOLAM 2 MG/2 ML INJ ONE (08:58)
[2019-06-30 09:07] LABS: ANION GAP 10 (5-19); BLOOD UREA NITROGEN 60 mg/dL (7-20); CALCIUM 9.3 mg/dL (8.4-10.2); CARBON DIOXIDE 32 mmol/L (22-30); CHLORIDE 96 mmol/L (98-107); GLUCOSE 91 mg/dL (75-110)
[2019-06-30] MEDS ORDERED: LIDOCAINE 0.5% INJ-PF (5 MG/ML) 50 ML SDV ONE (09:31)
--- NOTE | 2019-06-30 11:20 | PDOC H&P ---
General Chief Complaint: The patient was admitted for evaluation and angiogram and his right forearm AV fistula. - Diagnosis (1) Dialysis AV fistula malfunction Is this a Current Diagnosis?: Yes (2) ESRD (end stage renal disease) Is this a Current Diagnosis?: Yes (3) Atrial fibrillation Is this a Current Diagnosis?: Yes (4) Coronary artery disease Is this a Current Diagnosis?: Yes (5) Hypertension Is this a Current Diagnosis?: Yes - Current Medications/Allergies Home Medications: Aspirin [Aspirin 81 mg Chewable Tablet] 1 tab PO DAILY 05/18/16 Atenolol [Tenormin] 0.5 tab PO DAILY 05/18/16 Febuxostat [Uloric 40 mg Tablet] 1 tab PO QPM 05/18/16 Amlodipine Besylate [Norvasc 10 mg Tablet] 10 mg PO QPM 01/04/19 Atorvastatin Calcium [Lipitor 10 mg Tablet] 10 mg PO DAILY 01/04/19 Calcium Acetate 3 tab PO DAILY 01/04/19 Fenofibrate 50 mg PO DAILY 01/04/19 Furosemide [Lasix 20 mg Tablet] 80 mg PO BID 01/04/19 Tramadol HCl [Ultram 50 mg Tablet] 50 mg PO TID 01/04/19 Allergies/Adverse Reactions: morphine Allergy (Severe, Verified 06/30/19 08:19) Hallucinations Past Medical History Cardiac Medical History: Reports: Atrial Fibrillation, Hyperlipidema, Hypertension Denies: Coronary Artery Disease, Myocardial Infarction Pulmonary Medical History: Denies: Asthma, Bronchitis, Chronic Obstructive Pulmonary Disease (COPD), Pneumonia Neurological Medical History: Denies: Seizures Endocrine Medical History: Reports: Diabetes Mellitus Type 2 - diet controlled Renal/ Medical History: Reports: End Stage Renal Disease Musculoskeltal Medical History: Reports: Arthritis - generalized Hematology: Denies: Anemia Past Surgical History Past Surgical History: Reports: Orthopedic Surgery - b/l knees,,achiles tendon, carpel tunnel, Other - Dialysis access related surgeries. Family History Family History: Reviewed & Not Pertinent, Hypertension Parental Family History Reviewed: No Children Family History Reviewed: No Sibling(s) Family History Reviewed.: No Social History Smoking Status: Former Smoker Physical Exam Vital Signs: Temp Pulse Resp BP Pulse Ox 98.3 F 63 18 137/80 H 94 06/30/19 07:55 06/30/19 07:55 06/30/19 07:55 06/30/19 07:55 06/30/19 07:55 Intake & Output 06/29/19 06/30/19 07/01/19 06:59 06:59 06:59 Weight 90.718 kg Additional comments: Constitutional: Well-developed well-nourished gentleman. No apparent acute distress. Eyes: Mucous membranes pink and moist, pupils equal and reactive to light. Conjunctiva normal. Wears spectacles. ENT: Hearing grossly normal. External pinna normal to inspection. Teeth intact. Tongue normal to inspection. Cardiac: Heart sounds 1 and 2 normal, no murmurs. Respiratory: Normal respiratory effort. S Psychiatric: Judgment, memory, insight seem normal. Mood is pleasant and appropriate. Extremities: Upper extremities show normal range of movement. Pulses present noted to the radial arteries. Capillary refill normal. No cyanosis noted. No muscle wasting noted. A functioning right radiocephalic fistula is noted., Somewhat softer than would be predicted. Impression/Plan Plan: The patient is to be admitted for fistula angiogram and intervention is needed. The hope is to maintain this fistula for as long as possible in dialysis use.
--- NOTE | 2019-06-30 11:29 | Discharge Summary ---
Discharge Summary (SDC) - Discharge Final Diagnosis: #1 right forearm radiocephalic AV fistula malfunction. 2. End-stage renal disease on hemodialysis. 3. Atrial fibrillation. 4. Coronary artery disease. 5. Hypertension. Date of Surgery: 06/30/19 Discharge Date: 06/30/19 Condition: Fair Treatment or Instructions: Discharge home [after recovery per ASU criteria]. Diet , [renal],as tolerated, when fully awake advance as tolerated. Activities within moderation encouraged. Follow up in my office by appointment in about [2 weeks]. Call for appointment. Leave wounds [covered], [keep clean and dry, until hemodialysis. Meds per med rec. May shower [in 48 hrs], [try to keep operated area as dry as possible]. Referrals: SARAHY DICKEY MD [Primary Care Provider] - Discharge Diet: Other (Comments) - Renal. Discharge Activity: Activity As Tolerated Report the Following to Your Physician Immediately: Shortness of Breath
--- NOTE | 2019-06-30 11:35 | Operative Report ---
Operative Report DATE OF SURGERY: 06/30/19 PREOPERATIVE DIAGNOSIS: #1 right forearm radiocephalic AV fistula malfunction. 2. End-stage renal disease on hemodialysis. 3. Atrial fibrillation. 4. Coronary artery disease. 5. Hypertension. POSTOPERATIVE DIAGNOSIS: #1 right forearm radiocephalic AV fistula malfunction. 2. End-stage renal disease on hemodialysis. 3. Atrial fibrillation. 4. Coronary artery disease. 5. Hypertension. OPERATION: 1. Needle introduction of the fistula. 2. Fistula angioplasty. 3. Angiogram and interpretation. SURGEON: ZAIRA MOFFETT MAINTENANCE MECHANIC ELEVATORS: None. ANESTHESIA: Moderate Sedation TISSUE REMOVED OR ALTERED: Not applicable. COMPLICATIONS: None. ESTIMATED BLOOD LOSS: 2 mL. INTRAOPERATIVE FINDINGS: Multiple areas of stenosis in the first 6 cm of this fistula. The arterial venous anastomosis is wide open. The [place] radial artery is actually huge, estimated to be 6 mm in diameter. There is a large draining branch about 5 cm from the arteriovenous anastomosis predispose laterally. Angioplasty with a 6 mm balloon was satisfactory in almost eliminating the multiple stenoses. Palpable improvement in fistula post procedure. The patient will be followed more closely, it may be necessary to ligate the draining branch to truly optimize his fistula. PROCEDURE: PROCEDURE: After verifying the procedure and having obtained informed consent, the patient's right arm and forearm were prepared with Chlorhexidine and draped out with sterile linen. Local anesthesia infiltrated. Percutaneous access into the fistula ,[retrograde], obtained about [20 cm] from the arteriovenous anastomosis using a micro puncture needle followed by micro puncture wire and then a micro puncture catheter. This was done on ultrasound guidance using real-time access into the vein. Ultrasound was also used to size the vein. Angiogram demonstrated the aforementioned findings. Angioplasty was elected. A 0.035 [place] wire was inserted, and over this, a 6 Syriac short introducer was placed, this was followed by a [6 mm high-pressure] angiopla This was done very carefully and up to 6 sara sustained for 2 minutes. Angiogram demonstrated successful outcome. The instrumentation was now withdrawn over hand pressure for 10 minutes . Dressings applied, procedure concluded. Exposure time: 1.6 minutes Radiation: 2.64 [place] ber[place]. Contrast: 25 mL of Isovue-M 300 low osmolality. DICTATING PHYSICIAN: ZAIRA LADD M.D. cc: ZAIRA LADD M.D. ([id number]) >>
[2019-06-30 13:30] VITALS: BP 126/78
--- NOTE | 2019-06-30 15:52 | EKG REPORT ---
SEVERITY:- ABNORMAL ECG - ATRIAL FIBRILLATION LEFT BUNDLE BRANCH BLOCK : Confirmed by: Renee Gallegos MD 30-Jun-2019 15:51:16
== END 2019-06-30 12:15 | disposition home or self-care (01) ==
LOC: CCL 07:46
PROVIDERS: ATTEND Surgery
DX: T82.858A Stenosis of other vascular prosthetic devices, implants and grafts, initial encounter (principal); Y83.2 Surgical operation with anastomosis, bypass or graft as the cause of abnormal reaction of the patient, or of later complication, without mention of misadventure at the time of the procedure; I12.0 Hypertensive chronic kidney disease with stage 5 chronic kidney disease or end stage renal disease; E11.22 Type 2 diabetes mellitus with diabetic chronic kidney disease; N18.6 End stage renal disease; Z99.2 Dependence on renal dialysis; I25.2 Old myocardial infarction; E78.5 Hyperlipidemia, unspecified; I48.91 Unspecified atrial fibrillation; Z79.82 Long term (current) use of aspirin; Z79.899 Other long term (current) drug therapy; Z87.891 Personal history of nicotine dependence
CPT/HCPCS: 36415; 85027; 85610; 85730; 80048; 36902; 71045; 93005; 93010; C1725; C1752; C1887; Q9967; C1769; J2250; J1644 ×2; J3010; J3490; C2623

== ENCOUNTER 2020-01-12 07:40 | Day surgery (SDC) | payer MEDICARE, OTHER ==
[~2020-01-12 07:40] MED LIST changes: -CEFAZOLIN 1 GM/D5W RTU 1 GM/50 ML RTUPB IV PRN; +DIAZEPAM 5 MG TABLET PO PRN; +OXYCODONE-ACETAMINOPHEN 5-325 MG TABLET PO PRN
[2020-01-12 09:04] LABS: HEMATOCRIT 36.3 % (37.9-51.0); HEMOGLOBIN 12.4 g/dL (13.5-17.0); MEAN CORPUSCULAR HEMOGLOBIN 32.5 pg (27.0-33.4); MEAN CORPUSCULAR HGB CONC 34.1 g/dL (32.0-36.0); MEAN CORPUSCULAR VOLUME 95 fl (80-97); PLATELET COUNT 178 10^3/uL (150-450); RED CELL DISTRIBUTION WIDTH 16.2 % (11.5-14.0); WHITE BLOOD COUNT 3.4 10^3/uL (4.0-10.5)
[2020-01-12] MEDS ORDERED: DIAZEPAM 5 MG TABLET ONE (09:07)
[2020-01-12] MEDS ORDERED: OXYCODONE-ACETAMINOPHEN 5-325 MG TABLET ONE (09:07)
[2020-01-12] MEDS ORDERED: LIDOCAINE 0.5% INJ-PF (5 MG/ML) 50 ML SDV ONE (09:21)
[2020-01-12] MEDS ORDERED: MIDAZOLAM 2 MG/2 ML INJ ONE (09:26)
[2020-01-12] MEDS ORDERED: FENTANYL CITRATE INJ/PF 100 MCG/2 ML AMPUL ONE (09:27)
[2020-01-12] MEDS ORDERED: HEPARIN SOD (PORCINE) 5,000 UNIT/ML 1 ML VIAL ONE (09:27)
--- NOTE | 2020-01-12 10:48 | Discharge Summary ---
Discharge Summary (SDC) - Discharge Final Diagnosis: #1 malfunctioning AV fistula, right radiocephalic. 2. End-stage renal disease on hemodialysis. 3. Coronary artery disease. 4. Hypertension. Date of Surgery: 01/12/20 Discharge Date: 01/12/20 Condition: Fair Treatment or Instructions: Discharge home [after recovery per ASU criteria]. Diet , [renal],as tolerated, when fully awake advance as tolerated. Activities within moderation encouraged. Follow up in my office by appointment in about 3 months. Call for appointment. Leave wounds [covered], [keep clean and dry, hemodialysis. Meds per med rec.. May shower [in 48 hrs], [try to keep operated area as dry as possible]. Referrals: SARAHY DICKEY MD [Primary Care Provider] - Discharge Diet: Other (Comments) - Renal. Respiratory Treatments at Home: Deep Breathing/Coughing Discharge Activity: Activity As Tolerated Report the Following to Your Physician Immediately: Shortness of Breath
[2020-01-12 11:36] VITALS: BP 126/65
--- NOTE | 2020-01-12 15:57 | RADIOLOGY REPORT (SQ) ---
EXAM DESCRIPTION: FISTULAGRAM W/PLASTY COMPLETED DATE/TIME: 01/12/2020 10:27 am REASON FOR STUDY: T82.858A T82.858A STENOSIS OF OTHER VASCULAR PROSTH DEV/GRFT, INIT Z79.899 OTHER SKILLED NURSING (CURRENT) DRUG THERAPY COMPARISON: None. FLUOROSCOPY TIME: 1.2 minutes. 256 images saved to PACS. TECHNIQUE: Intra-operative images acquired during surgical procedure to evaluate progress. NUMBER OF IMAGES: 256 images. LIMITATIONS: None. FINDINGS: Imaging in fluoroscopy during upper extremity dialysis access evaluation and plasty by Dr. Coronado . Please refer to the operative report for further details. IMPRESSION: INTRA PROCEDURAL IMAGING ABOVE . COMMENT: Quality ID [id number]: Final reports for procedures using fluoroscopy that document radiation exp osure indices, or exposure time and number of fluorographic images (if radiation exposure indices are not available) Please consult full operative report of the attending physician for description of the procedure. TECHNICAL DOCUMENTATION: JOB ID: [id number] 2010 [employer]- All Rights Reserved Reading location - IP/workstation name: [email or web address]
--- NOTE | 2020-01-22 12:57 | Operative Report ---
Operative Report DATE OF SURGERY: 01/12/20 PREOPERATIVE DIAGNOSIS: #1 malfunctioning AV fistula, right radiocephalic. 2. End-stage renal disease on hemodialysis. 3. Coronary artery disease. 4. Hypertension. POSTOPERATIVE DIAGNOSIS: #1 malfunctioning AV fistula, right radiocephalic. 2. End-stage renal disease on hemodialysis. 3. Coronary artery disease. 4. Hypertension. OPERATION: 1. Needle access into AV fistula, right radiocephalic. 2. Fistula angiogram. 3. Balloon angioplasty of AV fistula. 4. Angiogram and interpretation. SURGEON: ZAIRA MOFFETT THREAD GRINDER: None. ANESTHESIA: Moderate Sedation TISSUE REMOVED OR ALTERED: Not applicable. COMPLICATIONS: None. ESTIMATED BLOOD LOSS: 5 mL. INTRAOPERATIVE FINDINGS: Of a well founded right radiocephalic fistula, mildly ectatic particularly in the area of frequent access. Somewhat soft suggesting of inflow disease. Angiogram confirmatory with superb outflow through what appears to be cephalic and brachial systems. The [place] radial artery is huge quite possibly as much as 5 or 6 mm, the anastomosis is wide open. The culprit lesions are a series of stenoses maximally about 90% of the adjacent lumen and 4.3 cm. Situated about 6 cm from the arteriovenous anastomosis. These responded well to angioplasty with complete eradication of the stenoses. Additional findings are of a large branch which comes off the main fistula. This is probably not significant at this time as it is narrowed. It may need ligation in future. I feel this intervention will result in much better access flows. I will need to review the patient in about 3 months to evaluate for possible ligation of the adjacent branch. PROCEDURE: PROCEDURE: After verifying the procedure and having obtained informed consent, the patient's right arm and forearm were prepared with Chlorhexidine and draped out with sterile linen. Local anesthesia infiltrated. Percutaneous access into the fistula , obtained about [20 cm] from the arteriovenous anastomosis using a micro puncture needle followed by micro puncture wire and then a micro puncture catheter. A 0.035 [place] wire was inserted, and over this, a 6 Mongolian short introducer was placed.,Angiogram demonstrated the aforementioned findings. Angioplasty was elected. this was followed by a 6 mm angioplasty balloon . Angioplasty was now done at the culprit area as the findings . This was done very carefully using a 3 mils syringe and sustained for 2 minutes. This was repeated. Angiogram demonstrated successful outcome. The result was accepted. The instrumentation was now withdrawn over hand pressure for 10 minutes. Dressings applied. Procedure concluded. Exposure time: 1.2 minutes Radiation: 4.14 mGy. Contrast: 25 mL of Isovue-M 300 low osmolality. DICTATING PHYSICIAN: ZAIRA LADD M.D. cc: ZAIRA LADD M.D. ([id number]) >>
--- NOTE | 2020-01-22 13:00 | PDOC H&P ---
General Chief Complaint: This patient was referred across for evaluation and treatment of his AV fistula. Low flows have been detected. - Diagnosis (1) Dialysis AV fistula malfunction Is this a Current Diagnosis?: Yes (2) Atrial fibrillation Is this a Current Diagnosis?: Yes (3) ESRD (end stage renal disease) Is this a Current Diagnosis?: Yes (4) Coronary artery disease Is this a Current Diagnosis?: Yes (5) Hypertension Is this a Current Diagnosis?: Yes - Current Medications/Allergies Home Medications: Aspirin [Aspirin 81 mg Chewable Tablet] 1 tab PO DAILY 05/18/16 Atenolol [Tenormin] 0.5 tab PO DAILY 05/18/16 Febuxostat [Uloric 40 mg Tablet] 1 tab PO QPM 05/18/16 Amlodipine Besylate [Norvasc 10 mg Tablet] 10 mg PO QPM 01/04/19 Atorvastatin Calcium [Lipitor 10 mg Tablet] 10 mg PO DAILY 01/04/19 Calcium Acetate 3 tab PO DAILY 01/04/19 Fenofibrate 50 mg PO DAILY 01/04/19 Furosemide [Lasix 20 mg Tablet] 80 mg PO BID 01/04/19 Tramadol HCl [Ultram 50 mg Tablet] 50 mg PO TID 01/04/19 Allergies/Adverse Reactions: morphine Allergy (Severe, Verified 06/30/19 08:19) Hallucinations Past Medical History Cardiac Medical History: Reports: Atrial Fibrillation, Hyperlipidema, Hypertension Denies: Coronary Artery Disease, Myocardial Infarction Pulmonary Medical History: Denies: Asthma, Bronchitis, Chronic Obstructive Pulmonary Disease (COPD), Pneumonia Neurological Medical History: Denies: Seizures Endocrine Medical History: Reports: Diabetes Mellitus Type 2 - diet controlled Renal/ Medical History: Reports: End Stage Renal Disease Musculoskeltal Medical History: Reports: Arthritis - generalized Hematology: Denies: Anemia Past Surgical History Past Surgical History: Reports: Orthopedic Surgery - b/l knees,,achiles tendon, carpel tunnel, Other - Dialysis access related surgeries. Family History Family History: Reviewed & Not Pertinent, Hypertension Parental Family History Reviewed: No Children Family History Reviewed: No Sibling(s) Family History Reviewed.: No Social History Smoking Status: Former Smoker Physical Exam Vital Signs: Temp Pulse Resp BP Pulse Ox 97.3 F 66 18 126/65 H 99 01/12/20 11:40 01/12/20 11:40 01/12/20 11:40 01/12/20 11:30 01/12/20 11:40 Additional comments: Constitutional: Well-developed well-nourished gentleman. No apparent acute distress. Eyes: Mucous membranes pink and moist, pupils equal and reactive to light. Conjunctiva normal. Wears spectacles. ENT: Hearing grossly normal. External pinna normal to inspection. Teeth mostly intact. Tongue normal to inspection. Cardiac: Heart sounds 1 and 2 normal, no murmurs. Respiratory: Normal respiratory effort. Skin: Normal to inspection. No ulcers, normal turgor. Psychiatric: Judgment, memory, insight seem normal. Mood is pleasant and appropriate. Extremities: Upper extremities show normal range of movement. Pulses present noted to the radial arteries. Capillary refill normal. No cyanosis noted. No muscle wasting noted. Right-sided radiocephalic fistula noted somewhat soft, suggesting inflow restriction. A visible large collateral is appreciated. Neurovascular: No apparent tremors, gait normal, for age and debility. Sensation grossly intact. Hearing grossly normal. Vison grossly intact. Impression/Plan Plan: In this patient with a malfunctioning AV fistula, angiogram and probably angioplasty is indicated. The procedure, its risks, benefits, expected outcome and alternatives are familiar to the patient. He wishes to proceed.
== END 2020-01-12 11:40 | disposition home or self-care (01) ==
LOC: CCL 07:40
PROVIDERS: ATTEND Surgery
DX: T82.858A Stenosis of other vascular prosthetic devices, implants and grafts, initial encounter (principal); Y83.2 Surgical operation with anastomosis, bypass or graft as the cause of abnormal reaction of the patient, or of later complication, without mention of misadventure at the time of the procedure; I12.0 Hypertensive chronic kidney disease with stage 5 chronic kidney disease or end stage renal disease; E11.22 Type 2 diabetes mellitus with diabetic chronic kidney disease; N18.6 End stage renal disease; Z99.2 Dependence on renal dialysis; Z88.5 Allergy status to narcotic agent; I25.10 Atherosclerotic heart disease of native coronary artery without angina pectoris; I48.91 Unspecified atrial fibrillation; Z79.82 Long term (current) use of aspirin; Z79.899 Other long term (current) drug therapy; E78.5 Hyperlipidemia, unspecified
CPT/HCPCS: 36415; 85027; 36902; C1725; C1752; C1887; C1769; J2250; J1644 ×2; A9270 ×2; J3010; J3490

== ENCOUNTER 2020-03-05 13:18 | Inpatient (IN) | payer MEDICARE, OTHER ==
[2020-03-05] MEDS ORDERED: ONDANSETRON HCL INJ/PF 4 MG/2 ML SDV IV PRN (15:09)
[2020-03-05] MEDS ORDERED: IPRATROPIUM/ALBUTEROL 0.5-2.5 MG/3 ML AMPUL NEB PRN (15:09)
[2020-03-05] MEDS ORDERED: ONDANSETRON 4 MG TAB.RAPDIS PO PRN (15:09)
--- NOTE | 2020-03-05 15:24 | PDOC CONSULTATION ---
Consultation Consult Date: 03/05/20 Provider Consulted: Ander ANN Consult reason:: ESRD for HD. History of Present Illness Admission Date/PCP: 03/05/20 13:18 SARAHY DICKEY MD History of Present Illness: KATHARINA SANCHEZ is a 79 year old male with history of ESRD on HD in the background of Hypertension , diet controlled DM and other co morbidities of A.fib was transferred from the [facility] after being admitted there after a mechanical fall yesterday soon after HD at [facility]. No h/o syncope, chest pains. He apparently tripped over his own feet and fell as per patient. He decided to go home and five hours later found he had bruised his head and had a swollen and very painful right knee that he decided to go to the [facility] ER and was promptly admitted for further evaluations and management.Is currently being seen while undergoing dialysis. Vital signs are stable. Dialysis orders reviewed with the treating dialysis nurse. Past Medical History Cardiac Medical History: Reports: Atrial Fibrillation, Hyperlipidemia Denies: Coronary Artery Disease, Myocardial Infarction Pulmonary Medical History: Denies: Asthma, Bronchitis, Chronic Obstructive Pulmonary Disease (COPD), Pneumonia Neurological Medical History: Denies: Seizures Endocrine Medical History: Reports: Diabetes Mellitus Type 2 - diet controlled Renal/ Medical History: Reports: End Stage Renal Disease, Secondary Hyperparathyroidism Musculoskeltal Medical History: Reports: Arthritis - generalized Past Surgical History Past Surgical History: Reports: Orthopedic Surgery - b/l knees,,achiles tendon, carpel tunnel, Other - Dialysis access related surgeries. Social History Smoking Status: Never Smoker Family History Parental Family History Reviewed: Yes - Negative for ESRD Children Family History Reviewed: Yes Sibling(s) Family History Reviewed.: Yes Medication/Allergy Home Medications: Aspirin [Aspirin 81 mg Chewable Tablet] 1 tab PO DAILY 05/18/16 Atenolol [Tenormin] 25 mg PO DAILY 05/18/16 Febuxostat [Uloric 40 mg Tablet] 1 tab PO QPM 05/18/16 Apixaban [Eliquis 2.5 mg Tablet] 2.5 mg PO BID #30 tablet 09/05/18 Calcium Acetate 2,001 mg PO DAILY 01/04/19 Furosemide [Lasix 20 mg Tablet] 80 mg PO BID 01/04/19 Tramadol HCl [Ultram 50 mg Tablet] 50 mg PO TID 01/04/19 Amiodarone HCl [Cordarone 200 mg Tablet] 200 mg PO DAILY 03/05/20 Atorvastatin Calcium [Lipitor 10 mg Tablet] 10 mg PO QHS 03/05/20 Diclofenac Sodium 1 applic TP BID 03/05/20 Fenofibrate 54 mg PO QPM 03/05/20 Fluticasone Propionate [Flonase Nasal [place] 50 Mcg/[place] 16 gm] 1 spray NASL DAILY 03/05/20 Allergies/Adverse Reactions: morphine Allergy (Severe, Verified 06/30/19 08:19) Hallucinations Review of Systems Constitutional: ABSENT: chills, fatigue, fever(s), headache(s), night sweats, weakness Ears: ABSENT: hearing changes Nose, Mouth, and Throat: ABSENT: mouth pain, sore throat Cardiovascular: ABSENT: chest pain, dyspnea on exertion, edema, orthropnea, palpitations Respiratory: ABSENT: dyspnea, hemoptysis Gastrointestinal: ABSENT: as per HPI, coffee ground emesis, diarrhea, dysphagia, heartburn, hematemesis, hematochezia Genitourinary: ABSENT: dysuria, hematuria Musculoskeletal: ABSENT: deformity, joint swelling Integumentary: ABSENT: diaphoresis, lesions, pruritus, rash Neurological: ABSENT: abnormal movements, abnormal speech, confusion, focal weakness, frequent falls, memory loss, numbness Endocrine: ABSENT: polydipsia Hematologic/Lymphatic: ABSENT: easy bruising Physical Exam Vital Signs: Temp Pulse Resp BP Pulse Ox 97.6 F 82 16 107/61 98 03/05/20 13:46 03/05/20 13:46 03/05/20 13:46 03/05/20 13:46 03/05/20 13:46 Intake & Output 03/04/20 03/05/20 03/06/20 06:59 06:59 06:59 Weight 97.6 kg General appearance: PRESENT: no acute distress Eye exam: PRESENT: EOMI, PERRLA. ABSENT: scleral icterus Ear exam: PRESENT: normal external ear exam Mouth exam: PRESENT: moist, neck supple Neck exam: ABSENT: lymphadenopathy, meningismus, tenderness, thyromegaly, tracheal deviation Respiratory exam: PRESENT: clear to auscultation mariam. ABSENT: crackles, decreased breath sounds Cardiovascular exam: PRESENT: +S1, +S2 GI/Abdominal exam: PRESENT: normal bowel sounds, soft. ABSENT: organomegaly, tenderness Extremities exam: ABSENT: pedal edema Musculoskeletal exam: PRESENT: deformity - Right knee is swollen but and is bandaged. Is tender. Neurological exam: PRESENT: alert, awake, oriented to person, oriented to place, oriented to time Psychiatric exam: PRESENT: appropriate affect Assessment & Plan - Diagnosis (1) ESRD (end stage renal disease) Is this a current diagnosis for this admission?: Yes Plan: Patient undergoing dialysis. Vital signs are stable. Dialysis is being supervised to ensure safe and smooth procedure. Dialysis orders reviewed the treating dialysis nurse. Plan to remove less than a liter of fluid as tolerated. (2) Chronic a-fib Is this a current diagnosis for this admission?: Yes Plan: Rate controlled. (3) Traumatic hematoma of right knee Is this a current diagnosis for this admission?: Yes Plan: He tripped and fell on his knees and hurt himself. Being managed by hospitalist. (4) Hypertension Qualifiers: Hypertension type: essential hypertension Qualified Code(s): I10 - Essential (primary) hypertension Is this a current diagnosis for this admission?: Yes
[2020-03-05 16:47] LABS: HEMATOCRIT 24.8 % (37.9-51.0); HEMOGLOBIN 8.7 g/dL (13.5-17.0); MEAN CORPUSCULAR HGB CONC 35.1 g/dL (32.0-36.0); MEAN CORPUSCULAR VOLUME 94 fl (80-97); PLATELET COUNT 171 10^3/uL (150-450); RED BLOOD COUNT 2.64 10^6/uL (4.35-5.55); RED CELL DISTRIBUTION WIDTH 15.8 % (11.5-14.0); WHITE BLOOD COUNT 3.8 10^3/uL (4.0-10.5)
[2020-03-05 17:05] LABS: ANION GAP 6 (5-19); BLOOD UREA NITROGEN 55 mg/dL (7-20); CALCIUM 8.6 mg/dL (8.4-10.2); CARBON DIOXIDE 27 mmol/L (22-30); CHLORIDE 96 mmol/L (98-107); GLUCOSE 95 mg/dL (75-110); POTASSIUM 4.6 mmol/L (3.6-5.0)
--- NOTE | 2020-03-05 17:11 | PDOC H&P ---
History of Present Illness Admission Date/PCP: 03/05/20 13:18 SARAHY DICKEY MD History of Present Illness: KATHARINA SANCHEZ is a 79 year old male with past medical history significant for ESRD on HD, RCC status post nephrectomy, diet-controlled T2 DM, HTN, chronic vertigo, chronic A. fib who presents via transfer from local [facility] center where patient had been admitted after a fall at home when he tripped over his own feet and fell striking his face on a recliner and falling with his full weight on his right knee. He specifically denies syncope/LOC. EMS initially came to see patient and he refused to be taken to the hospital. Later on that night he noticed his right knee developing a large hematoma becoming much more painful, prompting him to call EMS again and he was taken to [facility] where he was evaluated by trauma surgery. They elected to stop his chronic Eliquis and monitor his knee rather than perform any surgical intervention to drain the hematoma. Patient is on chronic dialysis and the [facility] does not have dialysis capabilities. Therefore, they transferred patient to [facility] for dialysis care while he awaits physical therapy evaluation and likely SNF placement in the near future. Dr. Toledo was called by the [facility] physician and he requested transfer to [facility] where he plans to continue monitoring the patient and providing HD. On the night prior to transfer here, patient had some hypotension with systolics down to the 70s and 80s which was promptly resolved after a 250 cc bolus of fluids. Hypotension has not recurred reportedly. Past Medical History Cardiac Medical History: Reports: Atrial Fibrillation, Hyperlipidema, Hypertension Denies: Coronary Artery Disease, Myocardial Infarction Pulmonary Medical History: Denies: Asthma, Bronchitis, Chronic Obstructive Pulmonary Disease (COPD), Pneumonia Neurological Medical History: Denies: Seizures Endocrine Medical History: Reports: Diabetes Mellitus Type 2 - diet controlled Renal/ Medical History: Reports: End Stage Renal Disease Malignancy Medical History: Reports: Renal (Kidney) Cancer Musculoskeltal Medical History: Reports: Arthritis - generalized Hematology: Denies: Anemia Past Surgical History Past Surgical History: Reports: Orthopedic Surgery - b/l knees,,achiles tendon, carpel tunnel, Other - Dialysis access related surgeries. Nephrectomy Social History Information Source: Patient, Emergency Med Personnel, OM Records, Outside Facility Records Lives with: Spouse/Significant other Smoking Status: Former Smoker Electronic Cigarette use?: No Frequency of Alcohol Use: Occasional Hx Recreational Drug Use: No Drugs: None Hx Prescription Drug Abuse: No - Advance Directive Resuscitation Status: Full Code Surrogate healthcare decision maker:: Family History Family History: Reviewed & Not Pertinent, Hypertension Parental Family History Reviewed: Yes Children Family History Reviewed: NA Sibling(s) Family History Reviewed.: NA Medication/Allergy Home Medications: Aspirin [Aspirin 81 mg Chewable Tablet] 1 tab PO DAILY 05/18/16 Atenolol [Tenormin] 0.5 tab PO DAILY 05/18/16 Febuxostat [Uloric 40 mg Tablet] 1 tab PO QPM 05/18/16 Apixaban [Eliquis 2.5 mg Tablet] 2.5 mg PO BID #30 tablet 09/05/18 Amlodipine Besylate [Norvasc 10 mg Tablet] 10 mg PO QPM 01/04/19 Atorvastatin Calcium [Lipitor 10 mg Tablet] 10 mg PO DAILY 01/04/19 Calcium Acetate 3 tab PO DAILY 01/04/19 Fenofibrate 50 mg PO DAILY 01/04/19 Furosemide [Lasix 20 mg Tablet] 80 mg PO BID 01/04/19 Tramadol HCl [Ultram 50 mg Tablet] 50 mg PO TID 01/04/19 Allergies/Adverse Reactions: morphine Allergy (Severe, Verified 06/30/19 08:19) Hallucinations Review of Systems All systems: reviewed and no additional remarkable complaints except as stated - Right knee pain, generalized fatigue. Otherwise negative Physical Exam Vital Signs: Temp Pulse Resp BP Pulse Ox 97.6 F 69 16 107/61 98 03/05/20 13:46 03/05/20 14:00 03/05/20 13:46 03/05/20 13:46 03/05/20 13:46 Intake & Output 03/04/20 03/05/20 03/06/20 06:59 06:59 06:59 Weight 97.6 kg General appearance: PRESENT: no acute distress, well-developed, well-nourished Head exam: PRESENT: normocephalic, other - Ecchymoses to right mandibular/submandibular/neck area without significant edema Eye exam: PRESENT: conjunctiva pink Mouth exam: PRESENT: moist Respiratory exam: PRESENT: clear to auscultation mariam. ABSENT: rales, rhonchi, wheezes Cardiovascular exam: PRESENT: RRR. ABSENT: diastolic murmur, rubs, systolic murmur GI/Abdominal exam: PRESENT: normal bowel sounds, soft. ABSENT: distended, guarding, mass, organolmegaly, rebound, tenderness Extremities exam: PRESENT: tenderness - Right knee tenderness with ecchymoses, seems to be resolving, +2 edema Neurological exam: PRESENT: alert, awake, oriented to person, oriented to place, oriented to time, oriented to situation Psychiatric exam: PRESENT: appropriate affect, normal mood Skin exam: PRESENT: dry, intact, warm Assessment and Plan - Diagnosis (1) Fall at home Qualifiers: Encounter type: initial encounter Qualified Code(s): W19.XXXA - Unspecified fall, initial encounter; Y92.009 - Unspecified place in unspecified non- institutional (private) residence as the place of occurrence of the external cause Is this a current diagnosis for this admission?: Yes Plan: Fell due to chronic vertigo and tripping over her feet reportedly; patient denies syncope/LOC; only trauma is to right face/neck and right knee both of which developed moderate hematomas which are resolving Evaluated by trauma surgery team at [facility], no surgery indicated; transferred to [facility] for dialysis needs which they do not have there Right knee hematoma looks well overall, minimally tender; unfortunately, causes severe disability due to pain and edema; PT/OT evaluation, planned placement at SNF at discharge (2) Traumatic hematoma of right knee Is this a current diagnosis for this admission?: Yes Plan: CT at [place] showed hematoma reportedly but intact joint and no fractures (3) Chronic anticoagulation Is this a current diagnosis for this admission?: Yes Plan: Hold home Eliquis until hematomas are effectively resolving/resolved (4) Chronic a-fib Is this a current diagnosis for this admission?: Yes Plan: Rate controlled in 70s on admission Holding Eliquis for hematomas, can restart at discharge (5) Hypotension Is this a current diagnosis for this admission?: Yes Plan: Likely due to overzealous volume removal during dialysis, at [facility] it was corrected after 250 cc bolus of fluids Can try midodrine (6) Debility Is this a current diagnosis for this admission?: Yes Plan: Due to chronic vertigo and fall with injury to right knee Needs PT/OT and SNF placement (7) Chronic vertigo Is this a current diagnosis for this admission?: Yes (8) Coronary artery disease Qualifiers: Coronary Disease-Associated Artery/Lesion type: [place] artery [place] vs. transplanted heart: [place] heart Associated angina: angina presence unspecified Qualified Code(s): I25.10 - Atherosclerotic heart disease of [place] coronary artery without angina pectoris Is this a current diagnosis for this admission?: Yes (9) ESRD (end stage renal disease) Is this a current diagnosis for this admission?: Yes Plan: Dialysis needs per nephrology have been consulted on admission (10) Hypertension Qualifiers: Hypertension type: essential hypertension Qualified Code(s): I10 - Essential (primary) hypertension Is this a current diagnosis for this admission?: Yes Plan: -low BP on admit, not on tx for this - Time Time Spent with patient: 25-34 minutes Medications reviewed and adjusted accordingly: Yes - Inpatient Certification Based on my medical assessment, after consideration of the patient's comorbidities, presenting symptoms, or acuity I expect that the services needed warrant INPATIENT care.: Yes I certify that my determination is in accordance with my understanding of Medicare's requirements for reasonable and necessary INPATIENT services [42 CFR 412.3e].: Yes Medical Necessity: Significant Comorbidiites Make Outpatient Treatment Too Risky, Need Close Monitoring Due to Risk of Patient Decompensation, Risk of Complication if Not Cared For in Hospital, Risk of Diagnosis Which Will Require Inpatient Eval/Care/Monitoring
--- NOTE | 2020-03-05 17:11 | ADVANCED CARE ---
- Diagnosis (1) Fall at home Diagnosis Current: Yes (2) Traumatic hematoma of right knee Diagnosis Current: Yes (3) Chronic anticoagulation Diagnosis Current: Yes (4) Chronic a-fib Diagnosis Current: Yes (5) Hypotension Diagnosis Current: Yes (6) Debility Diagnosis Current: Yes (7) Chronic vertigo Diagnosis Current: Yes (8) Coronary artery disease Diagnosis Current: Yes (9) ESRD (end stage renal disease) Diagnosis Current: Yes (10) Hypertension Diagnosis Current: Yes Attendance: Patient Resuscitation Status: Full Code Discussion: All aspects of code discussed including chest compressions/cardioversion/intubation patient states he would like to be full code. He designates his is his medical power of echo technologist. Time Spent: 17 minutes
[2020-03-06 06:15] LABS: ABSOLUTE EOSINOPHILS # (AUTO) 0.1 10^3/uL (0.0-0.6); ABSOLUTE LYMPHOCYTES (AUTO) 1.2 10^3/uL (0.5-4.7); ABSOLUTE MONOCYTES (AUTO) 0.7 10^3/uL (0.1-1.4); ABSOLUTE NEUT (AUTO) 1.7 10^3/uL (1.7-8.2); BASOPHILS % (AUTO) 0.5 % (0-2); EOSINOPHILS % (AUTO) 3.4 % (0-6); HEMOGLOBIN 8.3 g/dL (13.5-17.0); LYMPHOCYTES % (AUTO) 31.5 % (13-45); MEAN CORPUSCULAR HEMOGLOBIN 33.2 pg (27.0-33.4); MEAN CORPUSCULAR HGB CONC 34.8 g/dL (32.0-36.0); MEAN CORPUSCULAR VOLUME 96 fl (80-97); MONOCYTES % (AUTO) 18.2 % (3-13); PLATELET COUNT 172 10^3/uL (150-450); RED BLOOD COUNT 2.51 10^6/uL (4.35-5.55); RED CELL DISTRIBUTION WIDTH 16.2 % (11.5-14.0); SEGMENTED NEUTROPHILS % (AUTO) 46.4 % (42-78); TOTAL CELLS COUNTED % (AUTO) 100 %; WHITE BLOOD COUNT 3.8 10^3/uL (4.0-10.5)
[2020-03-06 07:56] LABS: ANION GAP 10 (5-19); BLOOD UREA NITROGEN 55 mg/dL (7-20); CALCIUM 8.6 mg/dL (8.4-10.2); CARBON DIOXIDE 24 mmol/L (22-30); CHLORIDE 97 mmol/L (98-107); GLUCOSE 85 mg/dL (75-110); POTASSIUM 4.9 mmol/L (3.6-5.0)
[2020-03-06] MEDS: AMIODARONE HCL 200 MG TABLET PO SCH (09:22)
[2020-03-06] MEDS: CALCIUM ACETATE 667 MG CAPSULE PO SCH (09:22)
[2020-03-06] MEDS: ASPIRIN 81 MG TABLET, CHEWABLE PO SCH (09:23)
[2020-03-06] MEDS: DOCUSATE SODIUM 100 MG CAPSULE PO SCH (09:23)
[2020-03-06] MEDS: FLUTICASONE NASAL SPRAY 50 MCG/SPRY 120 SPRAY/16 GM NASL SCH (09:24)
[2020-03-06] MEDS ORDERED: CALCIUM ACETATE 2001 MG PO SCH (10:00)
--- NOTE | 2020-03-06 11:08 | PDOC PROGRESS REPORT ---
Subjective Progress Note for:: 03/06/20 Subjective:: Patient met yesterday in transfer from [facility] in order to get dialysis. Patient underwent dialysis and only had one blood pressure dropped to less than 100 systolic. He states he was asymptomatic. This resolved with a small amount of saline infusion. He has no new complaints today. We will plan to send him to SNF on Sunday. Reason For Visit: ESRD ON DIALYSIS,FALL ON LEVEL GROUND,RIGHT LEG Physical Exam Vital Signs: Temp Pulse Resp BP Pulse Ox 97.5 F 72 16 105/57 L 93 03/06/20 07:43 03/06/20 09:20 03/06/20 09:20 03/06/20 07:43 03/06/20 09:20 Intake & Output 03/05/20 03/06/20 03/07/20 06:59 06:59 06:59 Intake Total 600 Output Total 600 Balance 0 Weight 93.9 kg General appearance: PRESENT: no acute distress, well-developed, well-nourished Head exam: PRESENT: atraumatic, normocephalic Eye exam: PRESENT: conjunctiva pink Mouth exam: PRESENT: moist Respiratory exam: PRESENT: clear to auscultation mariam. ABSENT: rales, rhonchi, wheezes Cardiovascular exam: PRESENT: RRR. ABSENT: diastolic murmur, rubs, systolic murmur GI/Abdominal exam: PRESENT: normal bowel sounds, soft. ABSENT: distended, guarding, mass, organolmegaly, rebound, tenderness Neurological exam: PRESENT: alert, awake, oriented to person, oriented to place, oriented to time, oriented to situation Psychiatric exam: PRESENT: appropriate affect, normal mood Skin exam: PRESENT: dry, intact, warm, other - Ecchymosis to right knee and right neck resolving Results Laboratory Results: 03/06/20 05:05 03/06/20 07:18 03/05/20 03/05/20 03/06/20 15:39 15:39 05:05 WBC 3.8 L 3.8 L RBC 2.64 L 2.51 L Hgb 8.7 L 8.3 L Hct 24.8 L 24.0 L MCV 94 96 MCH 33.0 33.2 MCHC 35.1 34.8 RDW 15.8 H 16.2 H Plt Count 171 172 Seg Neutrophils % 46.4 Sodium 129.1 L Potassium 4.6 Chloride 96 L Carbon Dioxide 27 Anion Gap 6 BUN 55 H Creatinine 5.22 H Est GFR ( Amer) 13 L Est GFR (Non-Af Amer) Glucose 95 Calcium 8.6 Magnesium 03/06/20 03/06/20 03/06/20 05:05 06:22 07:18 WBC RBC Hgb Hct MCV MCH MCHC RDW Plt Count Seg Neutrophils % Sodium Cancelled Cancelled 131.3 L Potassium Cancelled Cancelled 4.9 Chloride Cancelled Cancelled 97 L Carbon Dioxide Cancelled Cancelled 24 Anion Gap Cancelled Cancelled 10 BUN Cancelled Cancelled 55 H Creatinine Cancelled Cancelled 5.41 H Est GFR ( Amer) Cancelled Cancelled 12 L Est GFR (Non-Af Amer) Cancelled Cancelled Glucose Cancelled Cancelled 85 Calcium Cancelled Cancelled 8.6 Magnesium Cancelled Cancelled 2.2 Assessment and Plan - Diagnosis (1) Fall at home Qualifiers: Encounter type: initial encounter Qualified Code(s): W19.XXXA - Unspecified fall, initial encounter; Y92.009 - Unspecified place in unspecified non- institutional (private) residence as the place of occurrence of the external cause Is this a current diagnosis for this admission?: Yes Plan: Fell due to chronic vertigo and tripping over her feet reportedly; patient denies syncope/LOC; only trauma is to right face/neck and right knee both of which developed moderate hematomas which are resolving Evaluated by trauma surgery team at [facility], no surgery indicated; transferred to [facility] for dialysis needs which they do not have there Right knee hematoma looks well overall, minimally tender; unfortunately, causes severe disability due to pain and edema; PT/OT evaluation, planned placement at SNF at discharge 03/06/2020 Ecchymoses to right neck and right knee gradually resolving. Patient is a very small bulla on his right knee hematoma which is not tense. Need to be careful not to rupture this. (2) Traumatic hematoma of right knee Is this a current diagnosis for this admission?: Yes (3) Chronic anticoagulation Is this a current diagnosis for this admission?: Yes (4) Chronic a-fib Is this a current diagnosis for this admission?: Yes Plan: Rate controlled in 70s on admission Holding Eliquis for hematomas, can restart at discharge 03/06/2020 Plan to restart Eliquis on day of discharge, will allow ecchymoses to resolve in the meantime (5) Hypotension Is this a current diagnosis for this admission?: Yes (6) Debility Is this a current diagnosis for this admission?: Yes (7) Chronic vertigo Is this a current diagnosis for this admission?: Yes (8) Coronary artery disease Qualifiers: Coronary Disease-Associated Artery/Lesion type: [place] artery [place] vs. transplanted heart: [place] heart Associated angina: angina presence unspecified Qualified Code(s): I25.10 - Atherosclerotic heart disease of [place] coronary artery without angina pectoris Is this a current diagnosis for this admission?: Yes (9) ESRD (end stage renal disease) Is this a current diagnosis for this admission?: Yes (10) Hypertension Qualifiers: Hypertension type: essential hypertension Qualified Code(s): I10 - Essential (primary) hypertension Is this a current diagnosis for this admission?: Yes - Time Time Spent with patient: 15-24 minutes Medications reviewed and adjusted accordingly: Yes Anticipated discharge: SNF Within: within 48 hours - Inpatient Certification Based on my medical assessment, after consideration of the patient's comorbidities, presenting symptoms, or acuity I expect that the services needed warrant INPATIENT care.: Yes I certify that my determination is in accordance with my understanding of Medicare's requirements for reasonable and necessary INPATIENT services [42 CFR 412.3e].: Yes Medical Necessity: Significant Comorbidiites Make Outpatient Treatment Too Risky, Need Close Monitoring Due to Risk of Patient Decompensation, Risk of Complication if Not Cared For in Hospital, Risk of Diagnosis Which Will Require Inpatient Eval/Care/Monitoring
[2020-03-06] MEDS: ACETAMINOPHEN 325 MG TABLET PO PRN (13:40)
[2020-03-06] MEDS: TRAMADOL HCL 50 MG TABLET PO PRN ×2 (13:56→22:32)
[2020-03-06] MEDS: FEBUXOSTAT 40 MG TABLET PO SCH (17:33)
[2020-03-06] MEDS: FENOFIBRATE NANOCRYSTALLIZED 48 MG TABLET PO SCH (17:33)
[2020-03-06] MEDS ORDERED: (PENDING PHARMACY ID) (Fenofibrate [Fenofibrate] 54 MG) PO SCH (18:00)
[2020-03-06] MEDS: ATORVASTATIN CALCIUM 10 MG TABLET PO SCH (21:08)
[2020-03-07 06:02] LABS: ABSOLUTE EOSINOPHILS # (AUTO) 0.2 10^3/uL (0.0-0.6); ABSOLUTE LYMPHOCYTES (AUTO) 1.4 10^3/uL (0.5-4.7); ABSOLUTE MONOCYTES (AUTO) 0.7 10^3/uL (0.1-1.4); ABSOLUTE NEUT (AUTO) 2.3 10^3/uL (1.7-8.2); BASOPHILS % (AUTO) 0.5 % (0-2); EOSINOPHILS % (AUTO) 5.2 % (0-6); HEMATOCRIT 24.3 % (37.9-51.0); HEMOGLOBIN 8.5 g/dL (13.5-17.0); LYMPHOCYTES % (AUTO) 29.2 % (13-45); MEAN CORPUSCULAR HEMOGLOBIN 32.8 pg (27.0-33.4); MEAN CORPUSCULAR HGB CONC 34.8 g/dL (32.0-36.0); MEAN CORPUSCULAR VOLUME 94 fl (80-97); MONOCYTES % (AUTO) 15.6 % (3-13); PLATELET COUNT 184 10^3/uL (150-450); RED BLOOD COUNT 2.58 10^6/uL (4.35-5.55); RED CELL DISTRIBUTION WIDTH 15.8 % (11.5-14.0); SEGMENTED NEUTROPHILS % (AUTO) 49.5 % (42-78); TOTAL CELLS COUNTED % (AUTO) 100 %; WHITE BLOOD COUNT 4.7 10^3/uL (4.0-10.5)
[2020-03-07] MEDS: ASPIRIN 81 MG TABLET, CHEWABLE PO SCH (09:33)
[2020-03-07] MEDS: FLUTICASONE NASAL SPRAY 50 MCG/SPRY 120 SPRAY/16 GM NASL SCH (09:33)
[2020-03-07] MEDS: AMIODARONE HCL 200 MG TABLET PO SCH (09:33)
[2020-03-07] MEDS: CALCIUM ACETATE 667 MG CAPSULE PO SCH (09:33)
[2020-03-07] MEDS: DOCUSATE SODIUM 100 MG CAPSULE PO SCH (09:33)
--- NOTE | 2020-03-07 10:34 | EKG REPORT ---
SEVERITY:- ABNORMAL ECG - SINUS RHYTHM LEFT BUNDLE BRANCH BLOCK : Confirmed by: Meghann Mariee 07-Mar-2020 10:33:18
--- NOTE | 2020-03-07 14:10 | PDOC PROGRESS REPORT ---
Subjective Progress Note for:: 03/07/20 Subjective:: 03/06/2020 Patient met yesterday in transfer from [facility] in order to get dialysis. Patient underwent dialysis and only had one blood pressure drop ped to less than 100 systolic. He states he was asymptomatic. This resolved with a small amount of saline infusion. He has no new complaints today. We will plan to send him to SNF on Sunday. 03/07/2020 Patient doing quite well today however he states his right knee had a great deal more pain when he sat on a very low position toilet in his room. He has bit more bolus hematoma on the superficial part of his right knee but this is nontender today. Reportedly case management is looking for rehab facilities for the patient he is working with physical therapy here. Possible discharge tomorrow if he has a bed acceptance. Reason For Visit: ESRD ON DIALYSIS,FALL ON LEVEL GROUND,RIGHT LEG Physical Exam Vital Signs: Temp Pulse Resp BP Pulse Ox 97.6 F 55 L 16 111/65 99 03/07/20 11:21 03/07/20 11:21 03/07/20 11:21 03/07/20 11:21 03/07/20 11:21 Intake & Output 03/06/20 03/07/20 03/08/20 06:59 06:59 06:59 Intake Total 600 680 581 Output Total 600 20 Balance 0 660 581 Weight 93.9 kg 94.7 kg General appearance: PRESENT: no acute distress, well-developed, well-nourished Head exam: PRESENT: atraumatic, normocephalic Eye exam: PRESENT: conjunctiva pink Mouth exam: PRESENT: moist Respiratory exam: PRESENT: clear to auscultation mariam. ABSENT: rales, rhonchi, wheezes Cardiovascular exam: PRESENT: bradycardia GI/Abdominal exam: PRESENT: normal bowel sounds, soft. ABSENT: distended, guarding, mass, organolmegaly, rebound, tenderness Neurological exam: PRESENT: alert, awake Psychiatric exam: PRESENT: appropriate affect, normal mood Skin exam: PRESENT: dry, intact, warm, other Additional comments: Ecchymoses and right face/neck and right knee continue to improve but very gra dually Results Laboratory Results: 03/07/20 04:30 03/06/20 07:18 03/07/20 04:30 WBC 4.7 RBC 2.58 L Hgb 8.5 L Hct 24.3 L MCV 94 MCH 32.8 MCHC 34.8 RDW 15.8 H Plt Count 184 Seg Neutrophils % 49.5 Assessment and Plan - Diagnosis (1) Fall at home Qualifiers: Encounter type: initial encounter Qualified Code(s): W19.XXXA - Unspecified fall, initial encounter; Y92.009 - Unspecified place in unspecified non-institutional (private) residence as the place of occurrence of the external cause Is this a current diagnosis for this admission?: Yes (2) Traumatic hematoma of right knee Is this a current diagnosis for this admission?: Yes Plan: CT at [place] showed hematoma reportedly but intact joint and no fractures 03/07/2022 Patient had some additional pain in his right knee when he crouched down to get on a low seated toilet. Otherwise generally improving (3) Chronic anticoagulation Is this a current diagnosis for this admission?: Yes Plan: Hold home Eliquis until hematomas are effectively resolving/resolved 03/07/2020 Plan on restarting Eliquis after discharge. Given patient's chronic vertigo, he may be a good candidate for a watchman device and avoiding anticoagulants altogether (4) Chronic a-fib Is this a current diagnosis for this admission?: Yes (5) Hypotension Is this a current diagnosis for this admission?: Yes (6) Debility Is this a current diagnosis for this admission?: Yes (7) Chronic vertigo Is this a current diagnosis for this admission?: Yes (8) Coronary artery disease Qualifiers: Coronary Disease-Associated Artery/Lesion type: [place] artery [place] vs. transplanted heart: [place] heart Associated angina: angina presence unspecified Qualified Code(s): I25.10 - Atherosclerotic heart disease of [place] coronary artery without angina pectoris Is this a current diagnosis for this admission?: Yes (9) ESRD (end stage renal disease) Is this a current diagnosis for this admission?: Yes (10) Hypertension Qualifiers: Hypertension type: essential hypertension Qualified Code(s): I10 - Essential (primary) hypertension Is this a current diagnosis for this admission?: Yes - Time Time Spent with patient: 15-24 minutes Medications reviewed and adjusted accordingly: Yes Anticipated discharge: SNF Within: within 48 hours - Inpatient Certification Based on my medical assessment, after consideration of the patient's comorbidities, presenting symptoms, or acuity I expect that the services needed warrant INPATIENT care.: Yes I certify that my determination is in accordance with my understanding of Medicare's requirements for reasonable and necessary INPATIENT services [42 CFR 412.3e].: Yes Medical Necessity: Significant Comorbidiites Make Outpatient Treatment Too Risky, Need Close Monitoring Due to Risk of Patient Decompensation, Risk of Com plication if Not Cared For in Hospital, Risk of Diagnosis Which Will Require Inpatient Eval/Care/Monitoring
[2020-03-07] MEDS: FENOFIBRATE NANOCRYSTALLIZED 48 MG TABLET PO SCH (17:51)
[2020-03-07] MEDS: FEBUXOSTAT 40 MG TABLET PO SCH (17:51)
[2020-03-07] MEDS: ATORVASTATIN CALCIUM 10 MG TABLET PO SCH (21:59)
[2020-03-07] MEDS: TRAMADOL HCL 50 MG TABLET PO PRN (21:59)
[2020-03-08] MEDS ORDERED: EPOETIN ALFA-EPBX 2,000 UNIT, EPOETIN ALFA-EPBX 3,000 UNIT, EPOETIN ALFA-EPBX 20,000 UN... IV PRN ×4 (05:00)
[2020-03-08 06:44] LABS: ABSOLUTE EOSINOPHILS # (AUTO) 0.3 10^3/uL (0.0-0.6); ABSOLUTE LYMPHOCYTES (AUTO) 1.2 10^3/uL (0.5-4.7); ABSOLUTE MONOCYTES (AUTO) 0.6 10^3/uL (0.1-1.4); ABSOLUTE NEUT (AUTO) 2.3 10^3/uL (1.7-8.2); BASOPHILS % (AUTO) 0.7 % (0-2); EOSINOPHILS % (AUTO) 5.8 % (0-6); HEMATOCRIT 24.5 % (37.9-51.0); HEMOGLOBIN 8.5 g/dL (13.5-17.0); MEAN CORPUSCULAR HEMOGLOBIN 32.6 pg (27.0-33.4); MEAN CORPUSCULAR HGB CONC 34.6 g/dL (32.0-36.0); MEAN CORPUSCULAR VOLUME 94 fl (80-97); MONOCYTES % (AUTO) 13.6 % (3-13); PLATELET COUNT 197 10^3/uL (150-450); SEGMENTED NEUTROPHILS % (AUTO) 52.9 % (42-78); TOTAL CELLS COUNTED % (AUTO) 100 %; WHITE BLOOD COUNT 4.3 10^3/uL (4.0-10.5)
[2020-03-08 06:59] LABS: ANION GAP 9 (5-19); BLOOD UREA NITROGEN 70 mg/dL (7-20); CALCIUM 8.2 mg/dL (8.4-10.2); CARBON DIOXIDE 27 mmol/L (22-30); CHLORIDE 92 mmol/L (98-107); GLUCOSE 79 mg/dL (75-110); POTASSIUM 5.7 mmol/L (3.6-5.0)
[2020-03-08] MEDS: DOCUSATE SODIUM 100 MG CAPSULE PO SCH (10:05)
[2020-03-08] MEDS: CALCIUM ACETATE 667 MG CAPSULE PO SCH (10:22)
[2020-03-08] MEDS: AMIODARONE HCL 200 MG TABLET PO SCH (10:22)
[2020-03-08] MEDS: ASPIRIN 81 MG TABLET, CHEWABLE PO SCH (10:23)
[2020-03-08] MEDS: FLUTICASONE NASAL SPRAY 50 MCG/SPRY 120 SPRAY/16 GM NASL SCH (10:23)
--- NOTE | 2020-03-08 14:24 | PDOC PROGRESS REPORT ---
Subjective Progress Note for:: 03/08/20 Subjective:: Patient has history of end-stage renal disease, diabetes, hypertension, RCC status post nephrectomy, chronic A. fib on anticoagulation and chronic vertigo who had a fall on 03/04/2020 sustaining traumatic hematoma under right knee. After calling EMS twice he was initially brought to [facility] emergency room and since [facility] does not have any dialysis facilities he was transferred here at [facility] on Sunday. I am seeing the patient during dialysis this afternoon. So far he is comfortable and tolerating dialysis without any issues. Blood pressure was relatively in the low side to start with which is chronic. He told me that he was able to walk with a walker with physical therapy. There is a consideration of sending him to rehab facility but patient tells me that is not very comfortable but nevertheless he is not saying no either. He denies any chest pains no shortness of breath nor any other complaints. Reason For Visit: ESRD ON DIALYSIS,FALL ON LEVEL GROUND,RIGHT LEG Physical Exam Vital Signs: Temp Pulse Resp BP Pulse Ox 97.5 F 73 14 102/65 100 03/08/20 11:05 03/08/20 11:05 03/08/20 11:05 03/08/20 11:05 03/08/20 11:05 Intake & Output 03/07/20 03/08/20 03/09/20 06:59 06:59 06:59 Intake Total 680 581 Output Total 20 30 Balance 660 551 Weight 94.7 kg 96.1 kg Vitals during dialysis: Blood pressure 100/61, blood flow rate of 400 mL/min and dialysate flow rate of 800 mL/min. Exam: General appearance: PRESENT: no acute distress, cooperative, well-developed, well-nourished Head exam: PRESENT: atraumatic, normocephalic Eye exam: PRESENT: conjunctiva pale, PERRLA. Positive bruise on the right cheek ABSENT: scleral icterus Neck exam: ABSENT: JVD Respiratory exam: PRESENT: Normal breath sounds. ABSENT: crackles, rales, rhonchi, unlabored, wheezes Cardiovascular exam: PRESENT: Regular rate rhythm -+S1, +S2. ABSENT: diastolic murmur, systolic murmur GI/Abdominal exam: PRESENT: normal bowel sounds, soft. ABSENT: guarding, mass, tenderness Extremities exam: Grade 1 right lower extremity pitting edema, no edema on the left leg. Right knee is currently on no [place] wrap bandage Neurological exam: PRESENT: alert, awake, oriented to person, place and time. Skin exam: PRESENT: dry, warm, Cardiovascular exam: PRESENT: +S1, +S2 GI/Abdominal exam: PRESENT: normal bowel sounds, soft. ABSENT: organomegaly, tenderness Results Laboratory Results: 03/08/20 05:30 03/08/20 05:30 03/08/20 03/08/20 05:30 05:30 WBC 4.3 RBC 2.60 L Hgb 8.5 L Hct 24.5 L MCV 94 MCH 32.6 MCHC 34.6 RDW 16.0 H Plt Count 197 Seg Neutrophils % 52.9 Sodium 127.8 L Potassium 5.7 H Chloride 92 L Carbon Dioxide 27 Anion Gap 9 BUN 70 H Creatinine 8.18 H Est GFR ( Amer) 8 L Glucose 79 Calcium 8.2 L Assessment & Plan - Diagnosis (1) ESRD (end stage renal disease) Is this a current diagnosis for this admission?: Yes Plan: We will do dialysis today for 3 hours, using the patient's AV fistula, with 2 potassium bath, blood flow rate of 400 mL per minute, dialysate flow rate of 800 mL per minute, ultrafiltration 0.5 to 1 L as tolerated no heparin, 25,000 and Procrit with [10,000] units during dialysis intravenously. Patient will be monitored closely during dialysis. The patient has chronic hypotension and ultrafiltration is limited due to that. Ultrafiltration will be adjusted accordingly. (2) Hyperkalemia Is this a current diagnosis for this admission?: Yes Plan: We will use low potassium, 2K bath on dialysis. (3) Anemia in chronic kidney disease (CKD) Is this a current diagnosis for this admission?: Yes Plan: Retacrit will be given during dialysis. (4) Hyponatremia Is this a current diagnosis for this admission?: Yes Plan: Possibly secondary to mild hypervolemic state. (5) Traumatic hematoma of right knee Is this a current diagnosis for this admission?: Yes Plan: Patient on physical therapy. Consideration for [facility] rehab. (6) Chronic a-fib Is this a current diagnosis for this admission?: Yes Plan: Has been on Eliquis but currently on hold. (7) Chronic vertigo Is this a current diagnosis for this admission?: Yes (8) Fall at home Qualifiers: Encounter type: initial encounter Qualified Code(s): W19.XXXA - Unspecified fall, initial encounter; Y92.009 - Unspecified place in unspecified non- institutional (private) residence as the place of occurrence of the external cause Is this a current diagnosis for this admission?: Yes - Time Time with patient: 15-25 minutes
--- NOTE | 2020-03-08 15:23 | PDOC PROGRESS REPORT ---
Subjective Progress Note for:: 03/08/20 Subjective:: 03/06/2020 Patient met yesterday in transfer from [facility] in order to get dialysis. Patient underwent dialysis and only had one blood pressure drop ped to less than 100 systolic. He states he was asymptomatic. This resolved with a small amount of saline infusion. He has no new complaints today. We will plan to send him to SNF on Sunday. 03/07/2020 Patient doing quite well today however he states his right knee had a great deal more pain when he sat on a very low position toilet in his room. He has bit more bolus hematoma on the superficial part of his right knee but this is nontender today. Reportedly case management is looking for rehab facilities for the patient he is working with physical therapy here. Possible discharge tomorrow if he has a bed acceptance. 03/08/2020 Coronavirus testing pending for patient's possible discharge to rehab facility. Also, patient states he would like to be reevaluated by physical therapy to see if he can climb stairs. If he can accomplish this without a great deal difficulty he would like to go home with home physical therapy instead. He would like to work with physical therapy for another day and possibly be discharged tomorrow. He has no new complaints and the hematoma on his right knee seems to be less colorful today. Reason For Visit: ESRD ON DIALYSIS,FALL ON LEVEL GROUND,RIGHT LEG Physical Exam Vital Signs: Temp Pulse Resp BP Pulse Ox 97.5 F 66 14 102/65 100 03/08/20 11:05 03/08/20 14:00 03/08/20 11:05 03/08/20 11:05 03/08/20 11:05 Intake & Output 03/07/20 03/08/20 03/09/20 06:59 06:59 06:59 Intake Total 680 581 Output Total 20 30 Balance 660 551 Weight 94.7 kg 96.1 kg General appearance: PRESENT: no acute distress, well-developed, well-nourished Head exam: PRESENT: atraumatic, normocephalic Eye exam: PRESENT: conjunctiva pink Mouth exam: PRESENT: moist Respiratory exam: PRESENT: clear to auscultation mariam. ABSENT: rales, rhonchi, wheezes Cardiovascular exam: PRESENT: RRR. ABSENT: diastolic murmur, rubs, systolic murmur GI/Abdominal exam: PRESENT: normal bowel sounds, soft. ABSENT: distended, guarding, mass, organolmegaly, rebound, tenderness Rectal exam: PRESENT: deferred Neurological exam: PRESENT: alert, awake, oriented to person, oriented to place, oriented to time, oriented to situation, CN II-XII grossly intact. ABSENT: motor sensory deficit Psychiatric exam: PRESENT: appropriate affect, normal mood Skin exam: PRESENT: dry, intact, warm, other - Very slowly resolving ecchymoses to right knee and right neck Results Laboratory Results: 03/08/20 05:30 03/08/20 05:30 03/08/20 03/08/20 05:30 05:30 WBC 4.3 RBC 2.60 L Hgb 8.5 L Hct 24.5 L MCV 94 MCH 32.6 MCHC 34.6 RDW 16.0 H Plt Count 197 Seg Neutrophils % 52.9 Sodium 127.8 L Potassium 5.7 H Chloride 92 L Carbon Dioxide 27 Anion Gap 9 BUN 70 H Creatinine 8.18 H Est GFR ( Amer) 8 L Glucose 79 Calcium 8.2 L Assessment and Plan - Diagnosis (1) Fall at home Qualifiers: Encounter type: initial encounter Qualified Code(s): W19.XXXA - Unspecified fall, initial encounter; Y92.009 - Unspecified place in unspecified non- institutional (private) residence as the place of occurrence of the external cause Is this a current diagnosis for this admission?: Yes Plan: Fell due to chronic vertigo and tripping over her feet reportedly; patient denies syncope/LOC; only trauma is to right face/neck and right knee both of which developed moderate hematomas which are resolving Evaluated by trauma surgery team at [facility], no surgery indicated; transferred to [facility] for dialysis needs which they do not have there Right knee hematoma looks well overall, minimally tender; unfortunately, causes severe disability due to pain and edema; PT/OT evaluation, planned placement at SNF at discharge 03/06/2020 Ecchymoses to right neck and right knee gradually resolving. Patient is a very small bulla on his right knee hematoma which is not tense. Need to be careful not to rupture this. 03/08/2020 Patient would like reevaluation by physical therapy to see if he must go to rehab facility or can go home instead. He is unsure of his abilities to climb stairs. I discussed with the patient that he should have his sustain engineer evaluate him for watchman device which would help him avoid the high bleeding risk associated with his chronic anticoagulation. His chronic vertigo puts him at particularly high risk for falls and bleeding. (2) Traumatic hematoma of right knee Is this a current diagnosis for this admission?: Yes (3) Chronic anticoagulation Is this a current diagnosis for this admission?: Yes (4) Chronic a-fib Is this a current diagnosis for this admission?: Yes Plan: Rate controlled in 70s on admission Holding Eliquis for hematomas, can restart at discharge 03/06/2020 Plan to restart Eliquis on day of discharge, will allow ecchymoses to resolve in the meantime 03/08/2020 Still holding Eliquis as his right knee hematoma has collected in a small bullae on the top of his knee. Patient states he is extremely easy to bruise even when applying mild pressure to the skin. (5) Hypotension Is this a current diagnosis for this admission?: Yes (6) Debility Is this a current diagnosis for this admission?: Yes (7) Chronic vertigo Is this a current diagnosis for this admission?: Yes (8) Coronary artery disease Qualifiers: Coronary Disease-Associated Artery/Lesion type: [place] artery [place] vs. transplanted heart: [place] heart Associated angina: angina presence unspecified Qualified Code(s): I25.10 - Atherosclerotic heart disease of [place] coronary artery without angina pectoris Is this a current diagnosis for this admission?: Yes (9) ESRD (end stage renal disease) Is this a current diagnosis for this admission?: Yes (10) Hypertension Qualifiers: Hypertension type: essential hypertension Qualified Code(s): I10 - Essential (primary) hypertension Is this a current diagnosis for this admission?: Yes - Time Time Spent with patient: 15-24 minutes Medications reviewed and adjusted accordingly: Yes Anticipated discharge: Home Within: within 48 hours - Inpatient Certification Based on my medical assessment, after consideration of the patient's comorbidities, presenting symptoms, or acuity I expect that the services needed warrant INPATIENT care.: Yes I certify that my determination is in accordance with my understanding of Medicare's requirements for reasonable and necessary INPATIENT services [42 CFR 412.3e].: Yes Medical Necessity: Significant Comorbidiites Make Outpatient Treatment Too Risky, Need Close Monitoring Due to Risk of Patient Decompensation, Risk of Complication if Not Cared For in Hospital, Risk of Diagnosis Which Will Require Inpatient Eval/Care/Monitoring
[2020-03-08] MEDS: FENOFIBRATE NANOCRYSTALLIZED 48 MG TABLET PO SCH (17:25)
[2020-03-08] MEDS: FEBUXOSTAT 40 MG TABLET PO SCH (17:25)
[2020-03-08] MEDS: ATORVASTATIN CALCIUM 10 MG TABLET PO SCH (21:29)
[2020-03-08] MEDS: ACETAMINOPHEN 325 MG TABLET PO PRN (21:29)
[2020-03-09] MEDS: AMIODARONE HCL 200 MG TABLET PO SCH (09:49)
[2020-03-09] MEDS: ASPIRIN 81 MG TABLET, CHEWABLE PO SCH (09:49)
[2020-03-09] MEDS: FLUTICASONE NASAL SPRAY 50 MCG/SPRY 120 SPRAY/16 GM NASL SCH (09:49)
[2020-03-09] MEDS: CALCIUM ACETATE 667 MG CAPSULE PO SCH (09:49)
[2020-03-09] MEDS: DOCUSATE SODIUM 100 MG CAPSULE PO SCH (09:56)
--- NOTE | 2020-03-09 11:50 | PDOC PROGRESS REPORT ---
Subjective Progress Note for:: 03/09/20 Reason For Visit: ESRD ON DIALYSIS,FALL ON LEVEL GROUND,RIGHT LEG 03/09/2020 Patient admitted for hematoma right knee secondary to fall, end-stage renal disease on dialysis Physical Exam Vital Signs: Temp Pulse Resp BP Pulse Ox 97.7 F 74 16 105/62 98 03/09/20 04:04 03/09/20 06:42 03/09/20 04:04 03/09/20 04:04 03/09/20 04:04 Intake & Output 03/08/20 03/09/20 03/10/20 06:59 06:59 06:59 Intake Total 581 320 Output Total 30 1250 Balance 551 -930 Weight 96.1 kg 94.7 kg General appearance: PRESENT: no acute distress Respiratory exam: PRESENT: clear to auscultation mariam. ABSENT: rales, rhonchi, wheezes Cardiovascular exam: PRESENT: RRR. ABSENT: diastolic murmur, rubs, systolic murmur Extremities exam: PRESENT: joint swelling, +1 edema, other - According to the patient his knee is less swollen and red today Neurological exam: PRESENT: alert, awake, oriented to person, oriented to place, oriented to time, oriented to situation, CN II-XII grossly intact. ABSENT: motor sensory deficit Psychiatric exam: PRESENT: appropriate affect, normal mood. ABSENT: homicidal ideation, suicidal ideation Results Laboratory Results: 03/08/20 05:30 03/08/20 05:30 Assessment and Plan - Diagnosis (1) Anemia in chronic kidney disease (CKD) Is this a current diagnosis for this admission?: Yes (2) Chronic vertigo Is this a current diagnosis for this admission?: Yes (3) Debility Is this a current diagnosis for this admission?: Yes (4) Fall at home Qualifiers: Encounter type: initial encounter Qualified Code(s): W19.XXXA - Unspecified fall, initial encounter; Y92.009 - Unspecified place in unspecified non- institutional (private) residence as the place of occurrence of the external cause Is this a current diagnosis for this admission?: Yes (5) Hyperkalemia Is this a current diagnosis for this admission?: Yes (6) Hyponatremia Is this a current diagnosis for this admission?: Yes (7) Traumatic hematoma of right knee Is this a current diagnosis for this admission?: Yes (8) ESRD (end stage renal disease) Is this a current diagnosis for this admission?: Yes - Plan Summary Summary: 03/09/2020 Patient has a bed available at [facility], however COVID test is pending. If one has not been ordered then will order one for today. Patient's hematoma to the right knee is getting smaller and less painful. Patient is currently on dialysis, labs are being followed by nephrology. I did speak to nephrology today concerning patient. I also spoke to nursing and examined the patient's right knee with the nurse present. Patient told me this morning he wanted to go to rehab for short-term for strengthening. Patient states that prior to his fall his right leg was his strong leg and now with the fall it is weaker. Patient is medically stable for discharge but pending COVID-19 results. - Time Time Spent with patient: 25-34 minutes
[2020-03-09 12:28] LABS: ABSOLUTE EOSINOPHILS # (AUTO) 0.2 10^3/uL (0.0-0.6); ABSOLUTE LYMPHOCYTES (AUTO) 1.2 10^3/uL (0.5-4.7); ABSOLUTE MONOCYTES (AUTO) 0.7 10^3/uL (0.1-1.4); ABSOLUTE NEUT (AUTO) 2.9 10^3/uL (1.7-8.2); BASOPHILS % (AUTO) 0.4 % (0-2); EOSINOPHILS % (AUTO) 3.7 % (0-6); HEMATOCRIT 25.2 % (37.9-51.0); HEMOGLOBIN 8.9 g/dL (13.5-17.0); LYMPHOCYTES % (AUTO) 23.7 % (13-45); MEAN CORPUSCULAR HEMOGLOBIN 33.3 pg (27.0-33.4); MEAN CORPUSCULAR HGB CONC 35.3 g/dL (32.0-36.0); MEAN CORPUSCULAR VOLUME 94 fl (80-97); MONOCYTES % (AUTO) 14.7 % (3-13); PLATELET COUNT 198 10^3/uL (150-450); RED BLOOD COUNT 2.67 10^6/uL (4.35-5.55); SEGMENTED NEUTROPHILS % (AUTO) 57.5 % (42-78); TOTAL CELLS COUNTED % (AUTO) 100 %; WHITE BLOOD COUNT 5.1 10^3/uL (4.0-10.5)
[2020-03-09 12:44] LABS: ANION GAP 11 (5-19); BLOOD UREA NITROGEN 60 mg/dL (7-20); CALCIUM 8.2 mg/dL (8.4-10.2); CARBON DIOXIDE 27 mmol/L (22-30); CHLORIDE 91 mmol/L (98-107); GLUCOSE 88 mg/dL (75-110)
[2020-03-09] MEDS: FENOFIBRATE NANOCRYSTALLIZED 48 MG TABLET PO SCH (17:14)
[2020-03-09] MEDS: FEBUXOSTAT 40 MG TABLET PO SCH (17:14)
[2020-03-09] MEDS: ATORVASTATIN CALCIUM 10 MG TABLET PO SCH (22:01)
[2020-03-10] MEDS ORDERED: NORMAL SALINE 1000 ML 1,000 ML IV PRN (05:00)
[2020-03-10] MEDS ORDERED: EPOETIN ALFA-EPBX 2,000 UNIT, EPOETIN ALFA-EPBX 3,000 UNIT, EPOETIN ALFA-EPBX 20,000 UN... IV PRN ×4 (05:00)
[2020-03-10 06:03] LABS: ABSOLUTE EOSINOPHILS # (AUTO) 0.2 10^3/uL (0.0-0.6); ABSOLUTE LYMPHOCYTES (AUTO) 1.3 10^3/uL (0.5-4.7); ABSOLUTE MONOCYTES (AUTO) 0.9 10^3/uL (0.1-1.4); ABSOLUTE NEUT (AUTO) 2.8 10^3/uL (1.7-8.2); BASOPHILS % (AUTO) 0.4 % (0-2); EOSINOPHILS % (AUTO) 4.1 % (0-6); HEMATOCRIT 24.8 % (37.9-51.0); HEMOGLOBIN 8.7 g/dL (13.5-17.0); LYMPHOCYTES % (AUTO) 24.7 % (13-45); MEAN CORPUSCULAR HEMOGLOBIN 33.2 pg (27.0-33.4); MEAN CORPUSCULAR VOLUME 95 fl (80-97); MONOCYTES % (AUTO) 17.1 % (3-13); PLATELET COUNT 200 10^3/uL (150-450); RED BLOOD COUNT 2.62 10^6/uL (4.35-5.55); RED CELL DISTRIBUTION WIDTH 15.9 % (11.5-14.0); SEGMENTED NEUTROPHILS % (AUTO) 53.7 % (42-78); TOTAL CELLS COUNTED % (AUTO) 100 %; WHITE BLOOD COUNT 5.1 10^3/uL (4.0-10.5)
[2020-03-10 06:20] LABS: ANION GAP 11 (5-19); BLOOD UREA NITROGEN 68 mg/dL (7-20); CALCIUM 7.9 mg/dL (8.4-10.2); CARBON DIOXIDE 24 mmol/L (22-30); CHLORIDE 94 mmol/L (98-107); GLUCOSE 77 mg/dL (75-110); POTASSIUM 5.3 mmol/L (3.6-5.0)
--- NOTE | 2020-03-10 11:03 | PDOC PROGRESS REPORT ---
Subjective Progress Note for:: 03/10/20 Reason For Visit: ESRD ON DIALYSIS,FALL ON LEVEL GROUND,RIGHT LEG Hematoma right knee secondary to fall, end-stage renal disease on hemodialysis Physical Exam Vital Signs: Temp Pulse Resp BP Pulse Ox 97.7 F 73 16 94/67 L 98 03/10/20 03:33 03/10/20 07:00 03/10/20 03:33 03/10/20 03:33 03/10/20 03:33 Intake & Output 03/09/20 03/10/20 03/11/20 06:59 06:59 06:59 Intake Total 320 920 Output Total 1250 0 Balance -930 920 Weight 94.7 kg 95.3 kg General appearance: PRESENT: no acute distress Respiratory exam: PRESENT: clear to auscultation mariam. ABSENT: rales, rhonchi, wheezes Cardiovascular exam: PRESENT: RRR. ABSENT: diastolic murmur, rubs, systolic murmur Neurological exam: PRESENT: alert, awake, oriented to person, oriented to place, oriented to time, oriented to situation, CN II-XII grossly intact. ABSENT: motor sensory deficit Psychiatric exam: PRESENT: appropriate affect, normal mood. ABSENT: homicidal ideation, suicidal ideation Results Laboratory Results: 03/10/20 04:38 03/10/20 04:38 03/09/20 03/09/20 03/10/20 12:07 12:07 04:38 WBC 5.1 5.1 RBC 2.67 L 2.62 L Hgb 8.9 L 8.7 L Hct 25.2 L 24.8 L MCV 94 95 MCH 33.3 33.2 MCHC 35.3 35.0 RDW 16.0 H 15.9 H Plt Count 198 200 Seg Neutrophils % 57.5 53.7 Sodium 128.5 L Potassium 5.0 Chloride 91 L Carbon Dioxide 27 Anion Gap 11 BUN 60 H Creatinine 7.50 H Est GFR ( Amer) 8 L Glucose 88 Calcium 8.2 L 03/10/20 04:38 WBC RBC Hgb Hct MCV MCH MCHC RDW Plt Count Seg Neutrophils % Sodium 129.2 L Potassium 5.3 H Chloride 94 L Carbon Dioxide 24 Anion Gap 11 BUN 68 H Creatinine 8.32 H Est GFR ( Amer) 8 L Glucose 77 Calcium 7.9 L Assessment and Plan - Diagnosis (1) Anemia in chronic kidney disease (CKD) Is this a current diagnosis for this admission?: Yes (2) Chronic vertigo Is this a current diagnosis for this admission?: Yes (3) Debility Is this a current diagnosis for this admission?: Yes (4) Fall at home Qualifiers: Encounter type: initial encounter Qualified Code(s): W19.XXXA - Unspecified fall, initial encounter; Y92.009 - Unspecified place in unspecified non- institutional (private) residence as the place of occurrence of the external cause Is this a current diagnosis for this admission?: Yes (5) Hyperkalemia Is this a current diagnosis for this admission?: Yes (6) Hyponatremia Is this a current diagnosis for this admission?: Yes (7) Traumatic hematoma of right knee Is this a current diagnosis for this admission?: Yes (8) ESRD (end stage renal disease) Is this a current diagnosis for this admission?: Yes - Plan Summary Summary: 03/09/2020 Patient has a bed available at [facility], however COVID test is pending. If one has not been ordered then will order one for today. Patient's hematoma to the right knee is getting smaller and less painful. Patient is currently on dialysis, labs are being followed by nephrology. I did speak to nephrology today concerning patient. I also spoke to nursing and examined the patient's right knee with the nurse present. Patient told me this morning he wanted to go to rehab for short-term for strengthening. Patient states that prior to his fall his right leg was his strong leg and now with the fall it is weaker. Patient is medically stable for discharge but pending COVID-19 results. 03/10/2020 Patient has a bed at [facility] and hopefully we will get the COVID-19 results today for discharge today Patient has dialysis set up for Sunday at 1515, with [facility]. Patient's Eliquis will be resumed at the time of discharge Patient's vital signs are stable, blood pressure runs low normally, approximately 100 systolic and 50-60 diastolic I have discussed case with Dr. Campos, nephrology - Time Time Spent with patient: 25-34 minutes
[2020-03-10] MEDS: DOCUSATE SODIUM 100 MG CAPSULE PO SCH (17:26)
[2020-03-10] MEDS: FENOFIBRATE NANOCRYSTALLIZED 48 MG TABLET PO SCH (17:41)
[2020-03-10] MEDS: FEBUXOSTAT 40 MG TABLET PO SCH (17:41)
[2020-03-10] MEDS: ASPIRIN 81 MG TABLET, CHEWABLE PO SCH (17:41)
[2020-03-10] MEDS: CALCIUM ACETATE 667 MG CAPSULE PO SCH (17:41)
[2020-03-10] MEDS: AMIODARONE HCL 200 MG TABLET PO SCH (17:41)
[2020-03-10] MEDS: FLUTICASONE NASAL SPRAY 50 MCG/SPRY 120 SPRAY/16 GM NASL SCH (17:42)
--- NOTE | 2020-03-10 19:28 | PDOC PROGRESS REPORT ---
Subjective Progress Note for:: 03/10/20 Subjective:: I am seeing the patient during dialysis this morning. He still has right knee pain. He cooperates with physical therapy. He now agreed to be at a penitentiary facility at [facility] so his dialysis will be transferred to [facility] once he is transferred. We are only waiting for his COVID testing results. Currently he is tolerating dialysis without any problems. Reason For Visit: ESRD ON DIALYSIS,FALL ON LEVEL GROUND,RIGHT LEG Physical Exam Vital Signs: Temp Pulse Resp BP Pulse Ox 97.7 F 73 16 94/67 L 98 03/10/20 03:33 03/10/20 07:00 03/10/20 03:33 03/10/20 03:33 03/10/20 03:33 Intake & Output 03/09/20 03/10/20 03/11/20 06:59 06:59 06:59 Intake Total 320 920 Output Total 1250 0 Balance -930 920 Weight 94.7 kg 95.3 kg Vitals during dialysis: Blood pressure 109/58, heart rate of 81, blood flow rate of 450 mL/min and dialysate flow rate of 800 mL/min. Exam: General appearance: PRESENT: no acute distress, cooperative, well-developed, well-nourished Head exam: PRESENT: atraumatic, normocephalic Eye exam: PRESENT: conjunctiva slightly pale, PERRLA. ABSENT: scleral icterus Neck exam: ABSENT: JVD Respiratory exam: PRESENT: Normal breath sounds. ABSENT: crackles, rales, rhonchi, unlabored, wheezes Cardiovascular exam: PRESENT: Regular rate rhythm -+S1, +S2. ABSENT: diastolic murmur, systolic murmur GI/Abdominal exam: PRESENT: normal bowel sounds, soft. ABSENT: guarding, mass, tenderness Extremities exam: Mild trace right lower extremity pitting edema, he has hematoma over the knee and surrounding areas with hemorrhagic bullae at the medial aspect of his right knee. There is tenderness to touch. Neurological exam: PRESENT: alert, awake, oriented to person, place and time. Skin exam: PRESENT: dry, warm, Cardiovascular exam: PRESENT: +S1, +S2 GI/Abdominal exam: PRESENT: normal bowel sounds, soft. ABSENT: organomegaly, t enderness Results Laboratory Results: 03/10/20 04:38 03/10/20 04:38 03/09/20 03/09/20 03/10/20 12:07 12:07 04:38 WBC 5.1 5.1 RBC 2.67 L 2.62 L Hgb 8.9 L 8.7 L Hct 25.2 L 24.8 L MCV 94 95 MCH 33.3 33.2 MCHC 35.3 35.0 RDW 16.0 H 15.9 H Plt Count 198 200 Seg Neutrophils % 57.5 53.7 Sodium 128.5 L Potassium 5.0 Chloride 91 L Carbon Dioxide 27 Anion Gap 11 BUN 60 H Creatinine 7.50 H Est GFR ( Amer) 8 L Glucose 88 Calcium 8.2 L 03/10/20 04:38 WBC RBC Hgb Hct MCV MCH MCHC RDW Plt Count Seg Neutrophils % Sodium 129.2 L Potassium 5.3 H Chloride 94 L Carbon Dioxide 24 Anion Gap 11 BUN 68 H Creatinine 8.32 H Est GFR ( Amer) 8 L Glucose 77 Calcium 7.9 L Assessment & Plan - Diagnosis (1) ESRD (end stage renal disease) Is this a current diagnosis for this admission?: Yes Plan: We will do dialysis today for 3 hours, using the patient's AV fistula, with 2 potassium bath, blood flow rate of 450 mL per minute, dialysate flow rate of 800 mL per minute, ultrafiltration 1 to 1.5 L as tolerated, no heparin and Retacrit with 25,000 units during dialysis intravenously. Patient is being monitored throughout dialysis treatment. Once transferred to [place], patient will do his dialysis at [facility]. (2) Hyperkalemia Is this a current diagnosis for this admission?: Yes Plan: We will use low potassium, 2K bath on dialysis. (3) Anemia in chronic kidney disease (CKD) Is this a current diagnosis for this admission?: Yes Plan: Retacrit will be given during dialysis. (4) Hyponatremia Is this a current diagnosis for this admission?: Yes Plan: Possibly secondary to mild hypervolemic state. Unchanged. (5) Traumatic hematoma of right knee Is this a current diagnosis for this admission?: Yes Plan: Patient on physical therapy. Patient will be discharged on penitentiary facility at [facility]. (6) Chronic a-fib Is this a current diagnosis for this admission?: Yes Plan: Has been on Eliquis but currently on hold. (7) Chronic vertigo Is this a current diagnosis for this admission?: Yes (8) Fall at home Qualifiers: Encounter type: initial encounter Qualified Code(s): W19.XXXA - Unspecified fall, initial encounter; Y92.009 - Unspecified place in unspecified non- institutional (private) residence as the place of occurrence of the external cause Is this a current diagnosis for this admission?: Yes - Time Time with patient: 15-25 minutes
[2020-03-10] MEDS: ATORVASTATIN CALCIUM 10 MG TABLET PO SCH (22:54)
[2020-03-10] MEDS: ACETAMINOPHEN 325 MG TABLET PO PRN (23:19)
[2020-03-11] MEDS: AMIODARONE HCL 200 MG TABLET PO SCH (09:57)
[2020-03-11] MEDS: ASPIRIN 81 MG TABLET, CHEWABLE PO SCH (09:57)
[2020-03-11] MEDS: FLUTICASONE NASAL SPRAY 50 MCG/SPRY 120 SPRAY/16 GM NASL SCH (09:57)
[2020-03-11] MEDS: CALCIUM ACETATE 667 MG CAPSULE PO SCH (09:57)
[2020-03-11] MEDS: DOCUSATE SODIUM 100 MG CAPSULE PO SCH (09:57)
[2020-03-11] MEDS: ACETAMINOPHEN 325 MG TABLET PO PRN (10:21)
[2020-03-11 13:18] VITALS: BP 100/61
--- NOTE | 2020-03-11 15:51 | PDOC TRANSFER SUMMARY ---
Impression - Admit/DC Date/PCP Admission Date/Primary Care Provider: 03/05/20 13:18 SARAHY DICKEY MD Discharge Date: 03/11/20 - Discharge Diagnosis (1) Anemia in chronic kidney disease (CKD) Is this a current diagnosis for this admission?: Yes (2) Chronic vertigo Is this a current diagnosis for this admission?: Yes (3) Debility Is this a current diagnosis for this admission?: Yes (4) Fall at home Is this a current diagnosis for this admission?: Yes (5) Hyperkalemia Is this a current diagnosis for this admission?: Yes (6) Hyponatremia Is this a current diagnosis for this admission?: Yes (7) Traumatic hematoma of right knee Is this a current diagnosis for this admission?: Yes (8) ESRD (end stage renal disease) Is this a current diagnosis for this admission?: Yes - Assessment Summary: 03/09/2020 Patient has a bed available at [facility], however COVID test is pending. If one has not been ordered then will order one for today. Patient's hematoma to the right knee is getting smaller and less painful. Patient is currently on dialysis, labs are being followed by nephrology. I did speak to nephrology today concerning patient. I also spoke to nursing and examined the patient's right knee with the nurse present. Patient told me this morning he wanted to go to rehab for short-term for strengthening. Patient states that prior to his fall his right leg was his strong leg and now with the fall it is weaker. Patient is medically stable for discharge but pending COVID-19 results. 03/10/2020 Patient has a bed at [facility] and hopefully we will get the COVID-19 results today for discharge today Patient has dialysis set up for Sunday at 1515, with [facility]. Patient's Eliquis will be resumed at the time of discharge Patient's vital signs are stable, blood pressure runs low normally, approximately 100 systolic and 50-60 diastolic I have discussed case with Dr. Campos, nephrology 03/11/2020 Patient's COVID-19 was negative today Patient has been discharged to [facility] for rehab WBCs 5.1 hemoglobin 8.7 platelets 200,000 Sodium 129 potassium 5.3 BUN of 68 creatinine 8.32 Patient was admitted on 424 with a large hematoma to his right knee secondary to a fall at home. Patient was on anticoagulants for his chronic atrial fib. Since the [facility] did not have any dialysis capabilities he was transferred to our facility for his chronic hemodialysis. His Eliquis was stopped while he was in the hospital due to his hematoma of the right knee. It should be resumed at the time of discharge. Patient has been seen by nephrology while in the hospital. Hematoma of the right knee has improved significantly and is much smaller now he still continues to however have right knee pain. Is participating with physical therapy. His hemodialysis will be transferred to [facility], Sunday at 1550 hrs. Patient is getting dialysis through his AV fistula with 2 potassium bath, blood flow rate of 450 mL's per minute dialysate flow rate of 800 mL's per minute ultrafiltration 1 to 1.5 L as tolerated no heparin and retacrit with 25,000 units during dialysis IV Patient's blood pressures have been running low but this is normal for him, approximately 100 for his systolic and 50-64 diastolic Patient is medically stable for transfer for continued physical therapy and dialysis - Additional Information Resuscitation Status: Full Code Discharge Diet: Other (Comments) - Renal Discharge Activity: Activity As Tolerated, No Lifting Over 10 Pounds, No Lifting/Push/Pulling, Slowly Increase Activity Referrals: SARAHY DICKEY MD [Primary Care Provider] - Home Medications: Aspirin [Aspirin 81 mg Chewable Tablet] 1 tab PO DAILY 05/18/16 Atenolol [Tenormin] 25 mg PO DAILY 05/18/16 Febuxostat [Uloric 40 mg Tablet] 1 tab PO QPM 05/18/16 Apixaban [Eliquis 2.5 mg Tablet] 2.5 mg PO BID #30 tablet 09/05/18 Calcium Acetate 2,001 mg PO DAILY 01/04/19 Furosemide [Lasix 20 mg Tablet] 80 mg PO BID 01/04/19 Tramadol HCl [Ultram 50 mg Tablet] 50 mg PO TID 01/04/19 Amiodarone HCl [Cordarone 200 mg Tablet] 200 mg PO DAILY 03/05/20 Atorvastatin Calcium [Lipitor 10 mg Tablet] 10 mg PO QHS 03/05/20 Diclofenac Sodium 1 applic TP BID 03/05/20 Fenofibrate 54 mg PO QPM 03/05/20 Fluticasone Propionate [Flonase Nasal [place] 50 Mcg/[place] 16 gm] 1 spray NASL DAILY 03/05/20 Acetaminophen [Tylenol 325 mg Tablet] 650 mg PO Q4HP PRN tablet 03/10/20 Docusate Sodium [Colace 100 mg Capsule] 100 mg PO DAILY capsule 03/10/20 History of Present Illiness History of Present Illness: KATHARINA SANCHEZ is a 79 year old male Physical Exam Vital Signs: Temp Pulse Resp BP Pulse Ox 97.7 F 73 18 100/61 100 03/11/20 12:20 03/11/20 14:00 03/11/20 12:20 03/11/20 12:20 03/11/20 12:20 Intake & Output 03/10/20 03/11/20 03/12/20 06:59 06:59 06:59 Intake Total 920 527 375 Output Total 0 1200 Balance 920 -673 375 Weight 95.3 kg 95.1 kg Results Laboratory Results: WBC 5.1 10^3/uL (4.0-10.5) 03/10/20 04:38 RBC 2.62 10^6/uL (4.35-5.55) L 03/10/20 04:38 Hgb 8.7 g/dL (13.5-17.0) L 03/10/20 04:38 Hct 24.8 % (37.9-51.0) L 03/10/20 04:38 MCV 95 fl (80-97) 03/10/20 04:38 MCH 33.2 pg (27.0-33.4) 03/10/20 04:38 MCHC 35.0 g/dL (32.0-36.0) 03/10/20 04:38 RDW 15.9 % (11.5-14.0) H 03/10/20 04:38 Plt Count 200 10^3/uL (150-450) 03/10/20 04:38 Lymph % (Auto) 24.7 % (13-45) 03/10/20 04:38 [place] % (Auto) 17.1 % (3-13) H 03/10/20 04:38 Eos % (Auto) 4.1 % (0-6) 03/10/20 04:38 Baso % (Auto) 0.4 % (0-2) 03/10/20 04:38 Absolute Neuts (auto) 2.8 10^3/uL (1.7-8.2) 03/10/20 04:38 Absolute Lymphs (auto) 1.3 10^3/uL (0.5-4.7) 03/10/20 04:38 Absolute Monos (auto) 0.9 10^3/uL (0.1-1.4) 03/10/20 04:38 Absolute Eos (auto) 0.2 10^3/uL (0.0-0.6) 03/10/20 04:38 Absolute Basos (auto) 0.0 10^3/uL (0.0-0.2) 03/10/20 04:38 Seg Neutrophils % 53.7 % (42-78) 03/10/20 04:38 Sodium 129.2 mmol/L (137-145) L 03/10/20 04:38 Potassium 5.3 mmol/L (3.6-5.0) H 03/10/20 04:38 Chloride 94 mmol/L (98-107) L 03/10/20 04:38 Carbon Dioxide 24 mmol/L (22-30) 03/10/20 04:38 Anion Gap 11 (5-19) 03/10/20 04:38 BUN 68 mg/dL (7-20) H 03/10/20 04:38 Creatinine 8.32 mg/dL (0.52-1.25) H 03/10/20 04:38 Est GFR ( Amer) 8 (>60) L 03/10/20 04:38 Est GFR (Non-Af Amer) Cancelled 03/06/20 06:22 Est GFR (MDRD) Non-Af 6 (>60) L 03/10/20 04:38 Glucose 77 mg/dL (75-110) 03/10/20 04:38 Calcium 7.9 mg/dL (8.4-10.2) L 03/10/20 04:38 Magnesium 2.2 mg/dL (1.6-2.3) 03/06/20 07:18 EGFR Cancelled 03/06/20 06:22 COVID-19 Source NASOPHARYNGEAL 03/09/20 13:00 COVID-19 ([place]) NOT DETECTED 03/09/20 13:00 Stroke Is this a Stroke Patient?: No Acute Heart Failure - Is this a Heart Failure Patient?: No
== END 2020-03-11 16:45 | DRG 699 ==
LOC: 3W 13:18
PROVIDERS: ADMIT Internal Medicine; ATTEND Physician Assistant
PROC: 5A1D70Z Performance of Urinary Filtration, Intermittent, Less than 6 Hours Per Day (ICD-10-PCS; principal; 2020-03-05)
DX: E11.22 Type 2 diabetes mellitus with diabetic chronic kidney disease (principal); I12.0 Hypertensive chronic kidney disease with stage 5 chronic kidney disease or end stage renal disease; E87.1 Hypo-osmolality and hyponatremia; N18.6 End stage renal disease; I48.91 Unspecified atrial fibrillation; I95.9 Hypotension, unspecified; R42 Dizziness and giddiness; D63.1 Anemia in chronic kidney disease; E78.5 Hyperlipidemia, unspecified; N25.81 Secondary hyperparathyroidism of renal origin; Z99.2 Dependence on renal dialysis; Z87.891 Personal history of nicotine dependence; Z79.01 Long term (current) use of anticoagulants; Z79.82 Long term (current) use of aspirin; Z79.899 Other long term (current) drug therapy
CPT/HCPCS: 36415; 80048; 83735; 85025; 85027; 87635; 93005; 93010; J3490; Q5105